=== PATIENT | male | born 1935 | race Caucasian/White ===

== ENCOUNTER → 2016-11-13 | Outpatient (CLI) | payer MEDICARE ==
[~2016-11-13] MED LIST: ACP20 PO; COEN100C15 PO; MULT-190 PO; MULT-506 PO; PRAV20TA PO; TRAM-10 PO; TRIA3AER NAE; XRL10 PO; ZOLP5TAB PO; osteo biflex; super beta prostate
[2016-11-13 10:45] LABS: BASO % 0.3 %; BASO ABS # 0.02 K/uL (0-0.2); COMPLETE YES; EOS % 2.5 %; HEMATOCRIT 41.1 % (42-52); IG% 0.2 %; LYMPH ABS # 1.47 K/uL (1.2-3.4); MEAN CELL VOLUME 95.6 fL (80-100); MEAN CORPUSCULAR HEMOGLOBIN 31.9 pg (25-34); MEAN CORPUSCULAR HGB CONC 33.3 g/dl (32-36); MEAN PLATELET VOLUME 10.1 fL (7.4-10.4); PLATELET COUNT 175 K/uL (130-400); WHITE BLOOD COUNT 6.12 K/uL (4.8-10.8)
[2016-11-13 10:46] LABS: URINE APPEARANCE CLEAR (CLEAR); URINE BILIRUBIN NEG (NEG); URINE COLOR YELLOW; URINE NITRITE NEG (NEG); URINE SPECIFIC GRAVITY 1.024 (1.000-1.030); UROBILINOGEN NEG (NEG)
[2016-11-13 10:51] LABS: MANUAL MICROSCOPIC REQUIRED? NO; REVIEW REQ? NO
[2016-11-13 10:59] LABS: ALT/SGPT 33 U/L (12-78); AST/SGOT 21 U/L (15-37); BLOOD UREA NITROGEN 21 mg/dl (7-18); BUN/CREATININE RATIO 25.9 (10-20); CALCIUM 8.9 mg/dl (8.5-10.1); CARBON DIOXIDE 29 mmol/L (21-32); CHLORIDE 109 mmol/L (98-107); CHOLESTEROL 150 mg/dl (0-200); CREATININE 0.81 mg/dl (0.60-1.40); GLUCOSE 87 mg/dl (70-99); POTASSIUM 4.3 mmol/L (3.5-5.1); SODIUM 142 mmol/L (136-145); TRIGLYCERIDES 79 mg/dl (0-150); VERY LOW DENSITY LIPOPROT CALC 16 mg/dl
[2016-11-13 11:10] LABS: ALB/GLOB RATIO 1.3 (0.9-2); ALKALINE PHOSPHATASE 76 U/L (45-117); CHOLESTEROL/HDL RATIO 3.2; HDL CHOLESTEROL 47 mg/dl; LDL CHOLESTEROL CALCULATED 87 mg/dl
[2016-11-13 12:32] LABS: ESTIMATED AVERAGE GLUCOSE 114 mg/dl; HA1C FLAG Normal (Normal)
--- NOTE | 2016-11-24 11:43 | CODING QUERY MEDICAL NECESSITY ---
CQSUPPORTING DIAGNOSIS NEEDED A supporting diagnosis is required for the test/procedure performed on this patient in order for us to be reimbursed by the patient's insurance. Please provide a supporting diagnosis for the following test/procedure listed below next to the test name along with your signature. *If there is no additional diagnosis for this patient that would support the following test/procedure please document that below next to the test/procedure. Test(s)/Procedure(s) that require a supporting diagnosis: DOS 11/13/16 GLYCATED HEMOGLOBIN TEST PROSTATE SPECIFIC TEST Provider Signature: Date: Thank you Manisha Hernandez Health Information Management Once completed, please kindly fax back to [phone] For questions please call [phone]
== END | disposition home or self-care (01) ==
LOC: C.LAB1850 09:16
PROVIDERS: ATTEND Neurological Surgery
DX: E78.00 Pure hypercholesterolemia, unspecified (principal); R73.9 Hyperglycemia, unspecified; Z12.5 Encounter for screening for malignant neoplasm of prostate

== ENCOUNTER → 2016-12-24 | Outpatient (CLI) | payer MEDICARE ==
[2016-12-24 12:11] LABS: HEMATOCRIT 40.7 % (42-52); MEAN CELL VOLUME 94.9 fL (80-100); MEAN CORPUSCULAR HEMOGLOBIN 32.2 pg (25-34); MEAN CORPUSCULAR HGB CONC 33.9 g/dl (32-36); PLATELET COUNT 168 K/uL (130-400); RED BLOOD COUNT 4.29 M/uL (4.7-6.1); WHITE BLOOD COUNT 6.54 K/uL (4.8-10.8)
[2016-12-24 12:20] LABS: PROTHROMBIN TIME (PATIENT) 10.8 SECONDS (9.0-12.0)
== END | disposition home or self-care (01) ==
LOC: C.LAB1850 10:21
PROVIDERS: ATTEND Physician Assistant Medical
DX: T14.8 Other injury of unspecified body region (principal); X58.XXXA Exposure to other specified factors, initial encounter

== ENCOUNTER → 2017-05-31 | Outpatient (CLI) | payer MEDICARE ==
--- NOTE | 2017-05-31 15:51 | DIAGNOSTIC IMAGING REPORT ---
L HIP UNILATERAL 2 VIEWS HISTORY: 81 years-old Male LT HIP PAIN acute left hip pain without known injury COMPARISON: None available TECHNIQUE: 2 views of the left hip FINDINGS: Moderate osteoarthritis of the left hip. No acute fracture or subluxation. Imaged left hemipelvis appears intact. Soft tissues are unremarkable without opaque foreign body. IMPRESSION: Moderate left hip osteoarthritis without acute fracture or subluxation. The above report was generated using voice recognition software. It may contain grammatical, syntax or spelling errors. Electronically signed by: Han Keenan M.D. 05/31/2017 3:49 PM Dictated Date/Time: 05/31/2017 3:48 PM
== END | disposition home or self-care (01) ==
LOC: C.RAD1850 15:29
PROVIDERS: ATTEND Physician Assistant Medical
DX: M25.552 Pain in left hip (principal)

== ENCOUNTER → 2017-06-04 | Outpatient (CLI) | payer MEDICARE ==
[2017-06-04 10:04] LABS: BASO % 0.3 %; BASO ABS # 0.02 K/uL (0-0.2); EOS % 2.5 %; EOS ABS # 0.15 K/uL (0-0.5); HEMOGLOBIN 13.4 g/dL (14.0-18.0); IG# 0.01 K/uL (0.00-0.02); LYMPH % 25.5 %; LYMPH ABS # 1.51 K/uL (1.2-3.4); MEAN CELL VOLUME 95.6 fL (80-100); MEAN CORPUSCULAR HEMOGLOBIN 31.2 pg (25-34); MEAN CORPUSCULAR HGB CONC 32.7 g/dl (32-36); MEAN PLATELET VOLUME 9.6 fL (7.4-10.4); MONO % 6.7 %; NEUT % 64.8 %; NEUT ABS # 3.84 K/uL (1.4-6.5); PLATELET COUNT 168 K/uL (130-400); RED CELL DISTRIBUTION WIDTH CV 13.4 % (11.5-14.5); RED CELL DISTRIBUTION WIDTH SD 46.4 fL (36.4-46.3); WHITE BLOOD COUNT 5.93 K/uL (4.8-10.8)
[2017-06-04 10:32] LABS: ALBUMIN 3.6 gm/dl (3.4-5.0); ALT/SGPT 26 U/L (12-78); AST/SGOT 19 U/L (15-37); BLOOD UREA NITROGEN 20 mg/dl (7-18); CARBON DIOXIDE 31 mmol/L (21-32); CREATININE 0.82 mg/dl (0.60-1.40); GLUCOSE 70 mg/dl (70-99); SODIUM 143 mmol/L (136-145)
[2017-06-04 10:35] LABS: ALKALINE PHOSPHATASE 86 U/L (45-117); TOTAL PROTEIN 6.8 gm/dl (6.4-8.2)
[2017-06-08 21:35] LABS: PARVOVIRUS IgM INDEX 0.2 (<0.9)
== END | disposition home or self-care (01) ==
LOC: C.LAB1850 09:09
PROVIDERS: ATTEND Physician Assistant Medical
DX: M25.50 Pain in unspecified joint (principal)

== ENCOUNTER → 2017-11-09 | Outpatient (CLI) | payer MEDICARE ==
[2017-11-09 09:39] LABS: BASO % 0.4 %; BASO ABS # 0.02 K/uL (0-0.2); EOS ABS # 0.22 K/uL (0-0.5); HEMATOCRIT 42.1 % (42-52); LYMPH % 28.8 %; LYMPH ABS # 1.58 K/uL (1.2-3.4); MEAN CELL VOLUME 95.7 fL (80-100); MEAN CORPUSCULAR HEMOGLOBIN 31.8 pg (25-34); MEAN CORPUSCULAR HGB CONC 33.3 g/dl (32-36); MONO % 9.1 %; NEUT % 57.7 %; NEUT ABS # 3.16 K/uL (1.4-6.5); PLATELET COUNT 189 K/uL (130-400); RED CELL DISTRIBUTION WIDTH CV 13.5 % (11.5-14.5); RED CELL DISTRIBUTION WIDTH SD 46.7 fL (36.4-46.3); WHITE BLOOD COUNT 5.48 K/uL (4.8-10.8)
[2017-11-09 10:20] LABS: ALBUMIN 3.9 gm/dl (3.4-5.0); ALKALINE PHOSPHATASE 73 U/L (45-117); ALT/SGPT 29 U/L (12-78); AST/SGOT 22 U/L (15-37); BLOOD UREA NITROGEN 20 mg/dl (7-18); CALCIUM 9.1 mg/dl (8.5-10.1); CARBON DIOXIDE 31 mmol/L (21-32); CHOLESTEROL 178 mg/dl (0-200); CREATININE 0.78 mg/dl (0.60-1.40); GLUCOSE 81 mg/dl (70-99); LDL CHOLESTEROL CALCULATED 114 mg/dl; POTASSIUM 4.1 mmol/L (3.5-5.1); SODIUM 142 mmol/L (136-145)
== END | disposition home or self-care (01) ==
LOC: C.LAB1850 06:56
PROVIDERS: ATTEND Internal Medicine Pulmonary Disease
DX: E78.00 Pure hypercholesterolemia, unspecified (principal); R35.1 Nocturia

== ENCOUNTER 2022-05-01 20:38 | Inpatient (IN) ==
--- NOTE | 2022-05-01 21:20 | Emergency Department Note ---
Impression & Plan Acute hip pain, Ambulatory dysfunction ED Provider Note NAME: TIFFANY SLAUGHTER AGE: 86 SEX: M : 1935 ARRIVES VIA: Ambulance INFORMANT: Patient ED PROVIDER(S): Julio Butts DO CHIEF COMPLAINT: right hip pain HPI: Patient is an 86-year-old male who was recently admitted and had surgery on his right hip. He was discharged to rehab. He left the rehab AMA today to go home as he did not like the food and he did not like lack of rehab treatment that he was getting. He denies all other complaints including headache, change in vision, chest pain, shortness of breath, nausea, vomiting or diarrhea. No dysuria, urgency or frequency. No other exacerbating or remitting factors. He came back in as he cannot take care of himself at home and needs to be placed again. PAST MEDICAL HISTORY:See Below PAST SURGICAL HISTORY:See Below FAMILY HISTORY:See Below SOCIAL HISTORY:See Below HOME MEDICATIONS:See Below ALLERGIES:See Below VITALS:See Below PHYSICAL EXAMINATION: GENERAL: Sitting up in bed, alert, well appearing, well nourished, no distress, non-toxic EYE EXAM: normal conjunctiva. OROPHARYNX: no exudate, no erythema, lips, buccal mucosa, and tongue normal and mucous membranes are moist NECK: supple, no nuchal rigidity, no adenopathy, non-tender LUNGS: Clear to auscultation. Normal chest wall mechanics HEART: no murmurs, S1 normal and S2 normal ABDOMEN: abdomen soft, non-tender, normo-active bowel sounds, no masses, no rebound or guarding. UPPER EXTREMITIES: upper extremities are grossly normal. LOWER EXTREMITIES: No pitting edema. NEURO EXAM: Normal sensorium, cranial nerves II-XII grossly intact, normal speech, no gross weakness of arms, no gross weakness of legs. MEDICAL DECISION MAKING: Patient is an 86-year-old male who presents the ER who just left rehab today AMA although the doctors recommended him staying. Once getting home he was unable to care for himself consequently came back in. He denies all other complaints. IV was established blood work was obtained. Labs show no significant leukocytosis. Mild anemia 11. BMP was unremarkable. Case was discussed with Dr. Alvin Nunez for further evaluation and admission. External records were reviewed. Discussed with care management and patient will be admitted for further work-up. Triage Nursing notes reviewed. Limited review of prior medical records performed Vital Signs: reviewed and remarkable for no significant abnormalities Differential diagnosis: Differential diagnoses includes but is not limited to gastritis, peptic ulcer disease, GERD, gallbladder disease, pancreatitis, small bowel obstruction, ap pendicitis, diverticulitis, hernia, urinary tract infection, torsion, perforation, trauma, infectious. ER treatment provided: See below Diagnostics interpreted by me include EKG and cardiac monitoring as listed below: -Cardiac Monitoring: An order was placed for continuous cardiac monitoring. The monitor shows a rate of 80 with sinus rhythm. -ECG: none -Laboratory studies:Interpreted by me as stated above in MDM and shown below. Imaging studies: Xrays: As interpreted by me:none CTs show: none Consultation(s): Discussed with Alvin Nunez for further evaluation work-up and admission Procedures:none Critical Care: None Past Med/Surg History Medical History Allergic rhinitis Anxiety Arthritis Benign prostatic hyperplasia with urinary obstruction Cataract Chronic reflux esophagitis Degenerative joint disease involving multiple joints Hypercholesterolemia Hypertension Insomnia Obstructive sleep apnea Premature ventricular contractions Surgical History History of cataract surgery History of colonoscopy History of hip replacement, total History of shoulder surgery History of total knee arthroplasty Family History Son Primary biliary cirrhosis Social History Smoking Status: Never smoker Hx Alcohol Use: Yes Alcohol type: wine Hx Substance Use: No Preferred Language: Latvian Communication Ability: Effective Director Of Sales Marketing Required: No Beliefs That Will Affect Care: None marital status: / Current Living Situation: Alone current occupational status: retired Other Information That Helps Us Care for You: No Feels Safe at Home: Yes Safety Concerns: Feels Safe At This Time Assistive Devices: Glasses Assistive Devices Comment: prior to fall was independent in all activites Allergies Allergies Allergy/AdvReac Type Severity Reaction Status Date / Time No Known Allergies Allergy Verified 05/01/22 21:37 Home Meds Home Medications Medication Instructions Recorded Confirmed [id number]-[id number]-oha palm-min 17 1 tab PO DAILY 10/28/18 05/01/22 [Prostate Therapy] omega 3,6,9 combination no.7 1 cap PO DAILY 10/28/18 05/01/22 melatonin 10 mg tablet 5 mg PO HS PRN Sleep 11/07/18 05/01/22 lovcwkrv-nwb-jsrsp acid 300 1 tab PO DAILY 09/05/20 05/01/22 mcg-lycopene 600 mcg-lutein 300 mcg tablet (Centrum Silver Men) super beta prostate 1 tab PO DAILY 09/05/20 05/01/22 coenzyme Q10 50 mg capsule 50 mg PO DAILY 10/15/21 05/01/22 acetaminophen 325 mg tablet 650 mg PO Q6H PRN PAIN/FEVER 05/01/22 05/01/22 (Tylenol) acetaminophen 500 mg tablet 1,000 mg PO Q8H 05/01/22 05/01/22 (Tylenol Extra Strength) alprazolam 0.25 mg tablet 0.25 mg PO BID PRN Anxiety 05/01/22 05/01/22 apixaban 2.5 mg tablet (Eliquis) 2.5 mg PO BID 05/01/22 05/01/22 cholecalciferol (vitamin D3) 50 50 mcg PO DAILY 05/01/22 05/01/22 mcg (2,000 unit) capsule (Vitamin D3) esomeprazole magnesium 40 mg 40 mg PO DAILY 05/01/22 05/01/22 capsule,delayed release lidocaine 5 % topical patch 1 patch topical DAILY 05/01/22 05/01/22 losartan 25 mg tablet 25 mg PO DAILY 05/01/22 05/01/22 pravastatin 20 mg tablet 20 mg PO HS 05/01/22 05/01/22 silodosin 8 mg capsule 8 mg PO DAILY 05/01/22 05/01/22 triamcinolone acetonide 55 mcg 1 spray intranasal DAILY 05/01/22 05/01/22 nasal spray aerosol (Nasacort Allergy) vitamin A-vitamin C-vit E-min 1 tab PO DAILY 05/01/22 05/01/22 tablet zolpidem 5 mg tablet (Ambien) 5 mg PO HS PRN Sleep 05/01/22 05/01/22 Previous Rx's Medication Instructions Recorded meclizine 25 mg tablet 25 mg PO TID PRN dizziness #30 tabs 05/24/20 vardenafil 10 mg tablet 10 mg PO DAILY PRN sexual activity 12/15/21 #30 tabs Results & Data (ED) Vital Signs Vital Signs - 24 hr 05/01/22 21:04 Temperature 36.6 C Temperature Source Oral Pulse Rate 77 Respiratory Rate 18 Respiratory Effort / Characteristics Non-Labored Spontaneous Respiratory Depth Normal Blood Pressure 122/71 Blood Pressure Mean 88 Pulse Oximetry 98 Oxygen Delivery Method Room Air Sepsis Recent Fever Within 48 Hours No Sepsis New/Unexplained Change in Mental Status No Sepsis Action Taken by Nursing No Action Required Laboratory Data 05/01/22 21:24 05/01/22 22:42 Lab Results 05/01/22 05/01/22 05/01/22 Range/Units 21:24 21:24 21:24 WBC 8.52 (4.8-10.8) K/ul RBC 3.56 L (4.70-6.10) M/uL Hgb 11.4 L (14.0-18.0) g/dl Hct 33.3 L (42.0-52.0) % MCV 93.5 (80.0-100.0) fL MCH 32.0 (25.0-34.0) pg MCHC 34.2 (32.0-36.0) g/dL RDW Std Deviation 52.8 H (36.4-46.3) fL RDW Coeff of Sheree 15.4 H (11.5-14.5) % Plt Count 410 H (130-400) K/uL MPV 8.8 L (9.4-12.4) fL Immature Gran % (Auto) 0.6 % Neut % (Auto) 77.9 % Lymph % (Auto) 10.3 % [place] % (Auto) 10.1 % Eos % (Auto) 0.7 % Baso % (Auto) 0.4 % Neut # (Auto) 6.64 H (1.40-6.50) K/uL Lymph # (Auto) 0.88 L (1.2-3.4) K/uL [place] # (Auto) 0.86 H (0.11-0.59) K/uL Eos # (Auto) 0.06 (0-0.50) K/uL Baso # (Auto) 0.03 (0-0.2) K/uL Immature Gran # (Auto) 0.05 (0.01-0.20) K/uL Sodium 139 (136-145) mmol/L Potassium TNP Chloride 104 (98-107) mmol/L Carbon Dioxide 26 (21-32) mmol/L Anion Gap 9 (3-11) BUN 28 H (6-23) mg/dl Creatinine 0.84 (0.6-1.4) mg/dl Est Cr Clr Drug Dosing 57.9 ml/min Est GFR ( Amer) 91.2 ml/min Est GFR (Non-Af Amer) 78.7 ml/min BUN/Creatinine Ratio 33.3 H (10-20) Glucose 115 H (70-99(Fasting)) mg/dl Calcium 9.7 (8.5-10.1) mg/dl SARS-CoV-2, RNA, NAAT NEGATIVE (NEGATIVE) Discharge Plan Visit Data Chief Complaint: Pain (Generalized) Stated Complaint: PAIN/EVALUATION ED Provider: Julio Butts Discharge Problem: Acute hip pain, Ambulatory dysfunction Patient Disposition: Admitted As Inpatient Discharge Instructions Interventions: ED Discharge Assessment Last Done: 05/01/22 23:32
--- NOTE | 2022-05-01 21:32 | History & Physical Report ---
Date of Service May 01, 2022 Assessment & Plan (1) Femoral distal fracture: Plan: 86-year-old gentleman who was recently discharged from [facility] on 04/17 following a fall on ice that resulted in a right proximal humerus fracture and a right periprosthetic distal femoral diaphysis fracture that required right femur ORIF on 04/15 who presented to [facility] after leaving AMA from rehab. He requires hospitalization for PT, OT, pain management, and assistance with placement. RIGHT Distal Femoral Fracture s/p ORIF - s/p ORIF at [facility] on 04[place] - tolerated PT, OT well, was at rehab when he left AMA and now represented for hip pain - Pain control: Tylenol > Oxycodone. Avoid NSAIDs per [facility]. - PT, OT will be ordered --> Per [facility]: R hip and knee ROM as tolerated, no restrictions; knee immobilizer for comfort only - Fall precautions, NWB on RLE - Appreciate CM assistance on placement - will likely require rehab again - DVT PPX: Eliquis 2.5mg b.i.d. - WOCN to be consulted to aid with dressing change recommendations (2) Hypercholesterolemia: Plan: HLD - Continue pravastatin (3) Anxiety: Plan: Anxiety Alprazolam 0.125mg b.i.d. PRN for anxiety (home dose) Zolpidem 5 mg as needed for sleep (home medication) (4) Benign prostatic hyperplasia with urinary obstruction: Plan: BPH Continue silodosin 8 mg daily Plan Code: Full Prophylaxis: Eliquis 2.5 mg twice daily Dispo: [facility]Sur Diet: regular History of Present Illness Primary Care Provider: Esteban Jovel MD This is an 86-year-old male with a history of depression, anxiety, BPH with urinary obstruction, GERD, hypertension, hypercholesteremia, JANELL, cervical radiculopathy who presented to [facility] for evaluation of hip pain. Patient was recently discharged from [facility] after falling on ice, landing on his right knee and arm. X-rays demonstrated periprosthetic right proximal humerus fracture and periprosthetic distal femoral diaphysis fracture that necessitated repair of the femur fracture. He was on Eliquis 2.5 mg twice daily for DVT prophylaxis. He was ultimately discharged to [facility] in [place]. He did not like the care he was receiving there so he left AMA. He he says that he is very motivated to participate in rehab. He feels that the previous rehab facility was not meeting his needs, and he would be better served somewhere locally or at home with home PT. He is understanding that physical and occupational retraining are incredibly important to preventing long-term negative outcomes. In the ED, patient was found to be hemodynamically stable with normal blood pressure, heart rate, oxygen saturation. Admission labs revealing stable mild chronic anemia with hemoglobin 13.7. INR 1.0. BUN 21/creatinine 0.9. COVID- negative. Allergies Allergy/AdvReac Type Severity Reaction Status Date / Time No Known Allergies Allergy Verified 05/01/22 21:37 Home Medications Medication Instructions Recorded Confirmed Type dzuseg-nwglvro-ctd palm-min 17 1 tab PO DAILY 10/28/18 05/01/22 History [Prostate Therapy] omega 3,6,9 combination no.7 1 cap PO DAILY 10/28/18 05/01/22 History melatonin 10 mg tablet 5 mg PO HS PRN Sleep 11/07/18 05/01/22 History meclizine 25 mg tablet 25 mg PO TID PRN dizziness #30 tabs 05/24/20 05/01/22 Rx xnxagjgx-fhe-fvryv acid 300 1 tab PO DAILY 09/05/20 05/01/22 History mcg-lycopene 600 mcg-lutein 300 mcg tablet (Centrum Silver Men) super beta prostate 1 tab PO DAILY 09/05/20 05/01/22 History coenzyme Q10 50 mg capsule 50 mg PO DAILY 10/15/21 05/01/22 History vardenafil 10 mg tablet 10 mg PO DAILY PRN sexual activity 12/15/21 05/01/22 Rx #30 tabs acetaminophen 325 mg tablet 650 mg PO Q6H PRN PAIN/FEVER 05/01/22 05/01/22 History (Tylenol) acetaminophen 500 mg tablet 1,000 mg PO Q8H 05/01/22 05/01/22 History (Tylenol Extra Strength) alprazolam 0.25 mg tablet 0.25 mg PO BID PRN Anxiety 05/01/22 05/01/22 History apixaban 2.5 mg tablet (Eliquis) 2.5 mg PO BID 05/01/22 05/01/22 History cholecalciferol (vitamin D3) 50 50 mcg PO DAILY 05/01/22 05/01/22 History mcg (2,000 unit) capsule (Vitamin D3) esomeprazole magnesium 40 mg 40 mg PO DAILY 05/01/22 05/01/22 History capsule,delayed release lidocaine 5 % topical patch 1 patch topical DAILY 05/01/22 05/01/22 History losartan 25 mg tablet 25 mg PO DAILY 05/01/22 05/01/22 History pravastatin 20 mg tablet 20 mg PO HS 05/01/22 05/01/22 History silodosin 8 mg capsule 8 mg PO DAILY 05/01/22 05/01/22 History triamcinolone acetonide 55 mcg 1 spray intranasal DAILY 05/01/22 05/01/22 History nasal spray aerosol (Nasacort Allergy) vitamin A-vitamin C-vit E-min 1 tab PO DAILY 05/01/22 05/01/22 History tablet zolpidem 5 mg tablet (Ambien) 5 mg PO HS PRN Sleep 05/01/22 05/01/22 History Past Med/Surg History Medical History Allergic rhinitis Anxiety Arthritis Benign prostatic hyperplasia with urinary obstruction Cataract Chronic reflux esophagitis Degenerative joint disease involving multiple joints Hypercholesterolemia Hypertension Insomnia Obstructive sleep apnea Premature ventricular contractions Surgical History History of cataract surgery History of colonoscopy History of hip replacement, total History of shoulder surgery History of total knee arthroplasty Family History Son Primary biliary cirrhosis Social History Smoking Status: Never smoker Hx Alcohol Use: Yes Alcohol type: wine Hx Substance Use: No Preferred Language: [place] Communication Ability: Effective Repairer Resistance Welding Machines Required: No Beliefs That Will Affect Care: None marital status: / Current Living Situation: Alone current occupational status: retired Other Information That Helps Us Care for You: No Feels Safe at Home: Yes Safety Concerns: Feels Safe At This Time Assistive Devices: Walker and Wheelchair Assistive Devices Comment: prior to fall was independent in all activites Review of Systems Review of Systems: as per HPI Physical Exam Physical Exam: General: 86-year old male who is alert, oriented, and appears in no acute distress. HEENT: NCAT. - Eyes - Sclera are white, anicteric, and without injection. - Mouth - MMM - Neck - supple, no appreciable JVD Cardiac: Normal rate and regular rhythm; S1 and S2 present with no murmurs, rubs, or gallops. Pulmonary: Good respiratory effort with symmetric expansion of the chest. No use of accessory muscles. Lungs were clear to auscultation bilaterally with no crackles or wheezes. Abdominal: Normoactive bowel sounds. Abdomen was soft, nondistended, and non- tender to palpation. Extremities: Upper and lower extremities are warm and well perfused. Bandage along R lateral thigh c/d/i. Peripheral strength at ankle is 5/5. No peripheral edema in the lower extremities bilaterally Psych: Well-developed, well-nourished, appropriately dressed for occasion. Behavior is cooperative and appropriate. Affect is WNL. Insight is appropriate. Results & Data Results & Data ([facility]) Vital Signs (Past 12 Hours) Vital Signs Temp Pulse Resp BP Pulse Ox O2 Del Method 05/01/22 21:04 36.6 C 77 18 122/71 98 Room Air Supervising Physician Co-Signing Physician Notes Attending addendum: I have physically seen this patient, have supervised the medical residents activities, and agree with the H&P unless as otherwise noted. Assessment and Plan: Status post right periprosthetic distal femoral fracture ORIF- Patient was unhappy with physical therapy and food at previous rehab facility Admit for PT/OT assessment and management continue rehab facility Activity as tolerated per [facility] orthopedic surgery recommendation DVT prophylaxis with Eliquis 2.5 mg p.o. twice daily Wound care nurse consult for dressing recommendation changes Anxiety- Continue alprazolam and zolpidem as needed Hyperlipidemia- Continue pravastatin BPH- Continuous silodosin 8 mg harpreet remaining orders and notations as noted ly Resident Activity Tracking Resident Involvement: Resident Care Provided Care Provided: Adult [facility]
[2022-05-01] MEDS ORDERED: ONDANSETRON INJ 2 MG/ML 2 ML VIAL IV PRN (21:33)
[2022-05-01] MEDS ORDERED: POLYETHYLENE (MIRALAX) 17 GM PACK PO PRN (21:33)
[2022-05-01] MEDS ORDERED: ACETAMINOPHEN 325 MG TAB PO PRN (21:33)
[2022-05-01] MEDS ORDERED: ALUMINUM/MAGNESIUM SUSP 30 ML UDC PO PRN (21:33)
[2022-05-01 21:54] LABS: Basophils # (auto) 0.03 K/uL (0-0.2); Basophils % (auto) 0.4 %; Eosinophils # (auto) 0.06 K/uL (0-0.50); Eosinophils % (auto) 0.7 %; Hematocrit (blood only) 33.3 % (42.0-52.0); Hemoglobin 11.4 g/dl (14.0-18.0); Immature Granulocytes # (auto) 0.05 K/uL (0.01-0.20); Immature Granulocytes % (auto) 0.6 %; Lymphocytes # (auto) 0.88 K/uL (1.2-3.4); Lymphocytes % (auto) 10.3 %; Mean Corpuscular Hgb Conc 34.2 g/dL (32.0-36.0); Mean Corpuscular Volume 93.5 fL (80.0-100.0); Mean Platelet Volume 8.8 fL (9.4-12.4); Monocytes # (auto) 0.86 K/uL (0.11-0.59); Monocytes % (auto) 10.1 %; Neutrophils # (auto) 6.64 K/uL (1.40-6.50); Neutrophils % (auto) 77.9 %; Platelet Count 410 K/uL (130-400); RDW Coefficient of Variation 15.4 % (11.5-14.5); RDW Standard Deviation 52.8 fL (36.4-46.3); Red Blood Count 3.56 M/uL (4.70-6.10); White Blood Count 8.52 K/ul (4.8-10.8)
[2022-05-01 22:06] LABS: Anion Gap 9 (3-11); BUN Creatinine Ratio 33.3 (10-20); Blood Urea Nitrogen 28 mg/dl (6-23); Calcium 9.7 mg/dl (8.5-10.1); Carbon Dioxide 26 mmol/L (21-32); Chloride 104 mmol/L (98-107); Creatinine Clr Calc Pharmacy 57.9 ml/min; Est GFR (African American) 91.2 ml/min; Est GFR (Non-African American) 78.7 ml/min; Glucose 115 mg/dl (70-99(Fasting)); Sodium 139 mmol/L (136-145)
[2022-05-01] MEDS ORDERED: MECLIZINE HCL 25 MG TAB PO PRN (23:11)
[2022-05-01] MEDS ORDERED: ZOLPIDEM TARTRATE 5 MG TAB PO PRN (23:11)
[2022-05-01] MEDS ORDERED: ALPRAZolam 0.25 MG TABLET PO PRN (23:11)
[2022-05-01] MEDS ORDERED: oxyCODONE HCL IR 5 MG TAB (IMMEDIATE RELEASE) PO PRN (23:11)
[2022-05-02] MEDS: ACETAMINOPHEN 500 MG TAB PO SCH ×4 (00:07→21:14)
[2022-05-02] MEDS: LIDOCAINE 5% 1 PATCH TD SCH (08:28)
[2022-05-02] MEDS: CHOLECALCIFEROL 1,000 UNITS 25 MCG TAB PO SCH (08:28)
[2022-05-02] MEDS: APIXABAN 2.5 MG TAB PO SCH ×2 (08:28→20:25)
[2022-05-02] MEDS: TRIAMCINOLONE ACET NASAL SPRAY 10.8ML BTL NAE SCH (08:29)
[2022-05-02] MEDS: PANTOprazole 40 MG TAB PO SCH (08:29)
[2022-05-02 08:40] LABS: Basophils # (auto) 0.03 K/uL (0-0.2); Basophils % (auto) 0.5 %; Eosinophils # (auto) 0.15 K/uL (0-0.50); Eosinophils % (auto) 2.6 %; Hemoglobin 10.9 g/dl (14.0-18.0); Immature Granulocytes # (auto) 0.02 K/uL (0.01-0.20); Immature Granulocytes % (auto) 0.3 %; Lymphocytes # (auto) 1.08 K/uL (1.2-3.4); Lymphocytes % (auto) 18.4 %; Mean Corpuscular Hemoglobin 31.9 pg (25.0-34.0); Mean Corpuscular Volume 96.5 fL (80.0-100.0); Mean Platelet Volume 8.8 fL (9.4-12.4); Monocytes # (auto) 0.73 K/uL (0.11-0.59); Monocytes % (auto) 12.5 %; Neutrophils # (auto) 3.85 K/uL (1.40-6.50); Neutrophils % (auto) 65.7 %; Platelet Count 370 K/uL (130-400); RDW Coefficient of Variation 15.5 % (11.5-14.5); RDW Standard Deviation 54.2 fL (36.4-46.3); Red Blood Count 3.42 M/uL (4.70-6.10); White Blood Count 5.86 K/ul (4.8-10.8)
[2022-05-02 09:04] LABS: Albumin Globulin Ratio 1.5 (0.9-2); Albumin Level 3.5 gm/dl (3.4-5.0); BUN Creatinine Ratio 30.1 (10-20); Bilirubin,Total 0.9 mg/dl (0.2-1.0); Calcium 9.7 mg/dl (8.5-10.1); Creatinine Clr Calc Pharmacy 58.6 ml/min; Est GFR (African American) 91.7 ml/min; Est GFR (Non-African American) 79.1 ml/min; Globulin 2.4 gm/dl (2.5-4.0); Total Protein 5.9 gm/dl (6.0-8.3)
--- NOTE | 2022-05-02 11:48 | Hospitalist Progress Note ---
Date of Service May 02, 2022 Assessment & Plan (1) Acute hip pain: Plan: Recent Distal R Femur Fx s/p ORIF on 04/15 @ [facility] - Was at Rehab facility in [place], didn't feel that they were meeting needs and signed out AMA, attempted to go home but dgtr called 911 when he was unable to transfer into bed - PT/OT eval to determine appropriate dispo - Case management consult to assist in dc planning - Pain control with Tylenol & Oxycodone, avoid NSAIDs - Dressing changes PRN - Fall precautions d/t NWB status to RLE - DVT ppx with Eliquis 2.5mg BID (2) Anxiety: Plan: - Continue Alprazolam & Ambien (at home doses) (3) Hypercholesterolemia: Plan: - Continue Pravastatin (4) BPH w/o urinary obs/LUTS: Plan: - Continue Silodosin 8mg daily Plan Plan as outlined above. Will d/w Dr. Byrd. Admission and Anticipated Discharge Date Admission Date: May 01, 2022 Subjective Patient seen on daily rounds this morning. He is resting comfortably in bed, reports no complaints. Right hip/leg pain controlled. Hoping that he can be discharged home with home health versus going to rehab; however, he is NWB to his right leg. He denies chest pain, dyspnea. Has been voiding and moving bowels regularly. Physical Exam Physical Exam: GENERAL: 86 yo wd/wn elderly WM. Pleasant, cooperative. NAD. LUNGS: Clear to auscultation bilaterally. No W/R/R. CARDIOVASCULAR: Regular rate and rhythm. EXTREMITIES: No edema. Non-tender. Peripheral pulses +2/4. Right leg incision dressing intact/dry. No erythema. Neg latisha's sign. Results & Data Results & Data ([facility]) Vital Signs (Past 12 Hours) Vital Signs Temp Pulse Resp BP Pulse Ox O2 Del Method 05/02/22 11:28 Room Air 05/02/22 07:50 36.6 C 74 16 116/68 97 Room Air 05/01/22 23:50 Room Air Laboratory Results 05/02/22 08:00 05/02/22 08:00 PG Care Time/CCT Total # of Minutes Spent Total Time Spent with Patient: Total time spent is greater than 50% in coordination of care (as documented) at patient's floor/unit and/or counseling patient: Coding Level of Care Code 07078 SUB INP/OBS CARE 2/35MIN Diagnoses Acute hip pain M25.559 Anxiety F41.9 Hypercholesterolemia E78.00 BPH w/o urinary obs/LUTS N40.0
--- NOTE | 2022-05-02 20:08 | Billing Data ---
Date of Service May 02, 2022 Coding Level of Care Code 25641 INT INP/OBS CARE
[2022-05-02] MEDS: PRAVASTATIN SOD 20 MG TAB PO SCH (20:26)
[2022-05-02] MEDS ORDERED: LIDOCAINE 5% 1 PATCH TD SCH (21:00)
[2022-05-02] MEDS: MELATONIN 3 MG TAB PO PRN (21:16)
[2022-05-03] MEDS: ACETAMINOPHEN 500 MG TAB PO SCH ×3 (05:48→21:12)
[2022-05-03] MEDS: APIXABAN 2.5 MG TAB PO SCH ×2 (08:51→21:12)
[2022-05-03] MEDS: CHOLECALCIFEROL 1,000 UNITS 25 MCG TAB PO SCH (08:51)
[2022-05-03] MEDS: LIDOCAINE 5% 1 PATCH TD SCH (08:52)
[2022-05-03] MEDS: PANTOprazole 40 MG TAB PO SCH (08:52)
[2022-05-03] MEDS: TRIAMCINOLONE ACET NASAL SPRAY 10.8ML BTL NAE SCH (08:53)
--- NOTE | 2022-05-03 11:00 | Hospitalist Progress Note ---
Date of Service May 03, 2022 Assessment & Plan (1) Acute hip pain: Plan: Recent Distal R Femur Fx s/p ORIF on 04/15 @ [facility] [place] - Was at Rehab facility in [place], didn't feel that they were meeting needs and signed out AMA, attempted to go home but dgtr called 911 when he was unable to transfer into bed - PT/OT eval to determine appropriate dispo - Case management consult to assist in dc planning - Pain control with Tylenol & Oxycodone, avoid NSAIDs - Dressing changes PRN - Fall precautions d/t NWB status to RLE - DVT ppx with Eliquis 2.5mg BID (2) Periprosthetic fracture around internal prosthetic right shoulder joint: Plan: - Also occurred as a result of his fall back in March - Non-op management with R arm sling and NWB - Sling ordered and patient was counseled re: importance of wearing this sling (3) Anxiety: Plan: - Continue Alprazolam & Ambien (at home doses) (4) Hypercholesterolemia: Plan: - Continue Pravastatin (5) BPH w/o urinary obs/LUTS: Plan: - Continue Silodosin 8mg daily Plan Plan as outlined above. Continue PT/OT. Change dressing to right leg incision PRN. Above d/w Dr. Byrd. Admission and Anticipated Discharge Date Admission Date: May 02, 2022 Subjective Patient seen on daily rounds this morning. He has no complaints. Seems more receptive to the idea of going back to rehab but just doesn't want to go back to [place]. Denies uncontrolled hip/leg pain or shoulder pain. Is currently not wearing arm sling. Denies cp or dyspnea. Physical Exam Physical Exam: GENERAL: 86 yo wd/wn elderly WM. Pleasant, cooperative. NAD. LUNGS: Clear to auscultation bilaterally. No W/R/R. CARDIOVASCULAR: Regular rate and rhythm. EXTREMITIES: No edema. Non-tender. Peripheral pulses +2/4. Right leg incision dressing intact/dry. No erythema. Neg latisha's sign. Results & Data Results & Data ([facility]) Vital Signs (Past 12 Hours) Vital Signs Temp Pulse Resp BP Pulse Ox O2 Del Method 05/03/22 07:22 36.2 C L 74 16 120/75 97 Room Air 05/02/22 22:53 36.9 C 86 18 104/69 95 Room Air PG Care Time/CCT Total # of Minutes Spent Total Time Spent with Patient: Total time spent is greater than 50% in coordination of care (as documented) at patient's floor/unit and/or counseling patient: Coding Level of Care Code 15012 SUB INP/OBS CARE 2/35MIN Diagnoses Acute hip pain M25.559 Periprosthetic fracture around internal prosthetic right shoulder joint M97.31XA Anxiety F41.9 Hypercholesterolemia E78.00 BPH w/o urinary obs/LUTS N40.0
[2022-05-03] MEDS: MELATONIN 3 MG TAB PO PRN (21:12)
[2022-05-03] MEDS: PRAVASTATIN SOD 20 MG TAB PO SCH (21:12)
[2022-05-04] MEDS: ACETAMINOPHEN 500 MG TAB PO SCH ×3 (05:30→20:52)
[2022-05-04] MEDS: APIXABAN 2.5 MG TAB PO SCH ×2 (08:37→20:51)
[2022-05-04] MEDS: PANTOprazole 40 MG TAB PO SCH (08:38)
[2022-05-04] MEDS: CHOLECALCIFEROL 1,000 UNITS 25 MCG TAB PO SCH (08:39)
[2022-05-04] MEDS: LIDOCAINE 5% 1 PATCH TD SCH (08:41)
[2022-05-04] MEDS: TRIAMCINOLONE ACET NASAL SPRAY 10.8ML BTL NAE SCH (09:34)
--- NOTE | 2022-05-04 13:16 | Hospitalist Progress Note ---
Date of Service May 04, 2022 Assessment & Plan (1) Acute hip pain: Plan: Recent [place] [facility] [place], didn't feel that they were meeting needs and signed out AMA, attempted to go home but dgtr called 911 when he was unable to transfer into bed - PT/OT eval to determine appropriate dispo - Case management consult to assist in dc planning - Pain control with Tylenol & Oxycodone, avoid NSAIDs - Dressing changes PRN - Fall precautions d/t NWB status to RLE - DVT ppx with Eliquis 2.5mg BID - Call out to Dr. 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 Continue PT/OT. Change dressing to right leg incision PRN. Above d/w Dr. Byrd. Admission and Anticipated Discharge Date Admission Date: May 02, 2022 Subjective Patient seen on daily rounds this morning. He has no complaints. This morning is adamant that he does not want to go back to rehab and wants to go home. Denies uncontrolled hip/leg pain or shoulder pain. Is currently not wearing arm sling- keeps saying it's causing discomfort on the left side of his neck. Denies cp or dyspnea. Physical Exam Physical Exam: GENERAL: 86 yo wd/wn elderly WM. Pleasant, cooperative. NAD. LUNGS: Clear to auscultation bilaterally. No W/R/R. CARDIOVASCULAR: Regular rate and rhythm. EXTREMITIES: No edema. Non-tender. Peripheral pulses +2/4. Right leg incision dressing intact/dry. No erythema. Neg latisha's sign. 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
[2022-05-04] MEDS: MELATONIN 3 MG TAB PO PRN (20:50)
[2022-05-04] MEDS: PRAVASTATIN SOD 20 MG TAB PO SCH (20:52)
[2022-05-05] MEDS: ACETAMINOPHEN 500 MG TAB PO SCH ×3 (06:09→20:54)
[2022-05-05] MEDS: CHOLECALCIFEROL 1,000 UNITS 25 MCG TAB PO SCH (08:38)
[2022-05-05] MEDS: PANTOprazole 40 MG TAB PO SCH (08:38)
[2022-05-05] MEDS: APIXABAN 2.5 MG TAB PO SCH ×2 (08:39→20:43)
[2022-05-05] MEDS: LIDOCAINE 5% 1 PATCH TD SCH (08:39)
[2022-05-05] MEDS: TRIAMCINOLONE ACET NASAL SPRAY 10.8ML BTL NAE SCH (08:42)
--- NOTE | 2022-05-05 13:03 | Hospitalist Progress Note ---
Date of Service May 05, 2022 Assessment & Plan (1) Acute hip pain: Plan: Recent Distal R Femur Fx s/p ORIF on 04/15 @ [facility] [place] - Was at Rehab facility in [place], didn't feel that they were meeting needs and signed out AMA, attempted to go home but dgtr called 911 when he was unable to transfer into bed - PT/OT eval to determine appropriate dispo - Case management consult to assist in dc planning - Pain control with Tylenol & Oxycodone, avoid NSAIDs - Dressing changes PRN - Fall precautions d/t NWB status to RLE - DVT ppx with Eliquis 2.5mg BID - Spoke with Dr. Oquendo's office (pt's [place] surgeon) who refused to change his WB status until pt is seen and has updated xrays on 05/07 - Reached out to [facility] on 05/05 to see if they are willing to see patient while he is here in the hospital, no word back on that at this time (2) Periprosthetic fracture around internal prosthetic right shoulder joint: Plan: - Also occurred as a result of his fall back in March - Non-op management with R arm sling and NWB - Sling ordered and patient has been counseled repeatedly re: importance of wearing this sling (3) Anxiety: Plan: - Continue Alprazolam & Ambien (at home doses) (4) Hypercholesterolemia: Plan: - Continue Pravastatin (5) BPH w/o urinary obs/LUTS: Plan: - Continue Silodosin 8mg daily Plan Plan as outlined above. Continue PT/OT. Change dressing to right leg incision PRN. Case management following to for dc arrangements. If goes home, will almost definitely need wheelchair, walker, bedside commode, ?other supplies. Above d/w Dr. Byrd. Admission and Anticipated Discharge Date Admission Date: May 02, 2022 Subjective Patient seen on daily rounds this morning. Continues to refuse going back to rehab and wants to go home. Has contacted an in-home caregiver group, however, they cannot start until next week. Pt states that daughter is supposed to provide help to him this week, but she works and cannot provider 24-7 care for him. He has no solid plan for how he will get transported to his appointment in [place] on . Now asking that Dr. Dior see him while he is here in the hospital to arrange for follow up xrays and allow him to bear weight on his R leg. Continues to be noncompliant with wearing R arm sling. Physical Exam Physical Exam: GENERAL: 86 yo wd/wn elderly WM. Pleasant, cooperative. NAD. LUNGS: Clear to auscultation bilaterally. No W/R/R. CARDIOVASCULAR: Regular rate and rhythm. EXTREMITIES: No edema. Non-tender. Peripheral pulses +2/4. Right leg incision dressing intact/dry. No erythema. Neg latisha's sign. Results & Data Results & Data ([facility]) Vital Signs (Past 12 Hours) Vital Signs Temp Pulse Resp BP Pulse Ox O2 Del Method 05/05/22 07:48 36.6 C 77 18 129/77 96 Room Air PG Care Time/CCT Total # of Minutes Spent Total Time Spent with Patient: Total time spent is greater than 50% in coordination of care (as documented) at patient's floor/unit and/or counseling patient: Coding Level of Care Code 72714 SUB INP/OBS CARE 2/35MIN Diagnoses Acute hip pain M25.559 Periprosthetic fracture around internal prosthetic right shoulder joint M97.31XA Anxiety F41.9 Hypercholesterolemia E78.00 BPH w/o urinary obs/LUTS N40.0
[2022-05-05] MEDS: MELATONIN 3 MG TAB PO PRN (20:43)
[2022-05-05] MEDS: PRAVASTATIN SOD 20 MG TAB PO SCH (20:43)
[2022-05-06] MEDS: ACETAMINOPHEN 500 MG TAB PO SCH ×3 (06:10→21:07)
--- NOTE | 2022-05-06 08:44 | Hospitalist Progress Note ---
Date of Service May 06, 2022 Assessment & Plan (1) Acute hip pain: Plan: Recent Distal R Femur Fx s/p ORIF on 04/15 @ [facility] [place] Was at Rehab facility in [place], didn't feel that they were meeting needs and signed out AMA, attempted to go home but dgtr called 911 when he was unable to transfer into bed Fall precautions, PT/OT consulted (he wants to go to [facility] -- therapy rec SNF/rehab) Pain control -- reported controlled -- continue tylenol/oxycodone prn, AVOID NSAIDs Bowel regimen-- no BM in 3+ days, requesting suppository -- x1 ordered and monitor response Patient f/u [facility] [place] tomorrow 05/07, but unable to make and req seen by Dr Su inpatient, discussed w/ PA and consult placed Ordered f/u xrays for R hip and shoulder after discussion w/ PA (sling not being used by patient of note) --> progressive displacement R humeral head/neck --> expected post-op changes for ORIF >??also to have his elpidio removed tomorrow Appreciate input/advancement of WB status once eval'd by Dr Su this evening DVT ppx with Eliquis 2.5mg BID (2) Periprosthetic fracture around internal prosthetic right shoulder joint: Plan: Occurred as a result of fall in March Nonoperative management w/ sling/NWB status (had not been wearing during my exam, when mentioned about it he stated "don't get me started) Encouraged utilization of sling to prevent worsening (as noted by xray completed today) Ortho on consult (3) Anxiety: Plan: Continue Alprazolam & Ambien (at home doses) Symptoms stable, but frustrated about getting bounced around and not seeing Dr Su while here/not traveling to [facility] [place] Mood improved once stated going to have Dr Su see him today (4) Hypercholesterolemia: Plan: Continue Pravastatin (5) BPH w/o urinary obs/LUTS: Plan: Continue Silodosin 8mg daily (6) Constipation: Plan: given miralax 2/, has not moved bowels, req suppository ordered dulcolax [place] x 1, add PO senna/docusate and change miralax to daily scheduled to prevent constipation Plan PT/OT consulted and rec snf/rehab -- patient wanted [facility] in past but was denied. Asked CM to see if they would accept w/ current recs. If not agreeable to other SNF, will need wheelchair/walker/bedside commode/etc -- if WB status able to be changed, this may expand possibility of patient being able to go home more safely if refuses SNF rehab. Orthopedics consulted, to see patient today Admission and Anticipated Discharge Date Admission Date: May 02, 2022 Supervising Physician Co-Signing Physician Notes PA Supervision Note: I did not personally see or examine the patient today, but I verified all ledezma points of ADDIS Santamaria's assessment and plan with the following exceptions/additions: None Subjective eval this morning, just got back from obtaining xrays. believes healing, would like WB status advanced. To see Dr Su today as well as discussed with his PA to review imaging/offer recs. He states pain controlled, was to have elpidio removed tomorrow -- will see about removing w/ ortho tomorrow. No fever/chills, chest pain, shortness of breath. +BS but not moved his bowels in several days. Would like suppository as works in the past, oral had been unsuccessful in the past. His wishes are to go to [facility] for rehab if able, had been denied in the past. Review of Systems Review of Systems: All systems reviewed & are unremarkable except as noted in HPI & below Physical Exam Physical Exam: General: WD/WN elderly male sitting up in bed, NAD, just got back from xray HEENT: head normocephalic, atraumatic Resp: CTAb, no w/c, on room air CV: RRR, no significant m/r/g, no pitting edema/calf tenderness GI: +BS, slightly distended, nontender GI: no nash MSK/Neuro: dressing w/ elpidio to his R hip, appropriately tender, no redness/drainage/warmth, calves supple noted R shoulder sling in bed, not on patient cement mason strength equal, no obvious bony tenderness in shoulder Psych: AOx3, pleasant and cooperative Results & Data Results & Data ([facility]) Vital Signs (Past 12 Hours) Vital Signs Temp Pulse Resp BP Pulse Ox O2 Del Method 05/06/22 07:31 36.9 C 76 18 123/73 98 Room Air 05/05/22 21:07 36.5 C 71 17 119/70 96 Room Air Laboratory Results 05/06/22 05/06/22 05/06/22 Range/Units 08:48 08:48 08:48 WBC (4.8-10.8) K/ul RBC (4.70-6.10) M/uL Hgb (14.0-18.0) g/dl Hct (42.0-52.0) % MCV (80.0-100.0) fL MCH (25.0-34.0) pg MCHC (32.0-36.0) g/dL RDW Std Deviation (36.4-46.3) fL RDW Coeff of Sheree (11.5-14.5) % Plt Count (130-400) K/uL MPV (9.4-12.4) fL Sodium 142 (136-145) mmol/L Potassium 4.0 (3.5-5.1) mmol/L Chloride 105 (98-107) mmol/L Carbon Dioxide 34 H (21-32) mmol/L Anion Gap 3 (3-11) BUN 20 (6-23) mg/dl Creatinine 0.77 (0.6-1.4) mg/dl Est Cr Clr Drug Dosing 63.2 ml/min Est GFR ( Amer) 94.6 ml/min Est GFR (Non-Af Amer) 81.6 ml/min BUN/Creatinine Ratio 26.0 H (10-20) Glucose 109 H (70-99(Fasting)) mg/dl Calcium 9.5 (8.5-10.1) mg/dl Total Bilirubin 0.7 (0.2-1.0) mg/dl AST 17 (13-39) U/L ALT 10 (7-52) U/L Alkaline Phosphatase 114 H (34-104) U/L Total Protein 6.4 (6.0-8.3) gm/dl Albumin 3.5 (3.4-5.0) gm/dl Globulin 2.9 (2.5-4.0) gm/dl Albumin/Globulin Ratio 1.2 (0.9-2) Vitamin B12 587 (180-914) pg/ml 25-OH Vitamin D Total Cancelled 67.6 (30-100) ng/ml 05/06/22 Range/Units 08:48 WBC 4.07 L (4.8-10.8) K/ul RBC 3.73 L (4.70-6.10) M/uL Hgb 11.9 L (14.0-18.0) g/dl Hct 36.2 L (42.0-52.0) % MCV 97.1 (80.0-100.0) fL MCH 31.9 (25.0-34.0) pg MCHC 32.9 (32.0-36.0) g/dL RDW Std Deviation 54.6 H (36.4-46.3) fL RDW Coeff of Sheree 15.3 H (11.5-14.5) % Plt Count 319 (130-400) K/uL MPV 8.7 L (9.4-12.4) fL Sodium (136-145) mmol/L Potassium (3.5-5.1) mmol/L Chloride (98-107) mmol/L Carbon Dioxide (21-32) mmol/L Anion Gap (3-11) BUN (6-23) mg/dl Creatinine (0.6-1.4) mg/dl Est Cr Clr Drug Dosing ml/min Est GFR ( Amer) ml/min Est GFR (Non-Af Amer) ml/min BUN/Creatinine Ratio (10-20) Glucose (70-99(Fasting)) mg/dl Calcium (8.5-10.1) mg/dl Total Bilirubin (0.2-1.0) mg/dl AST (13-39) U/L ALT (7-52) U/L Alkaline Phosphatase (34-104) U/L Total Protein (6.0-8.3) gm/dl Albumin (3.4-5.0) gm/dl Globulin (2.5-4.0) gm/dl Albumin/Globulin Ratio (0.9-2) Vitamin B12 (180-914) pg/ml 25-OH Vitamin D Total (30-100) ng/ml Diagnostic Findings Femur X-Ray 05/06/22 08:42 XR femur RT 2V routine CLINICAL HISTORY: f/u ORIF COMPARISON: Right femur radiographs April 14, 2022. 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 There is no periprosthetic lucency. There are expected findings following plate and screw fixation of the distal right femoral fracture. Fracture alignment appears anatomic. The hardware is intact. There are no unexpected radiopaque foreign bodies. Possible small right knee joint effusion. Vascular calcification is incidentally noted. There is no proximal right tibial or fibular fracture. IMPRESSION: 1. Expected findings following internal fixation of the distal right femoral fracture. 2. 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 ACT 112: Negative or not required by law. Electronically signed by: Renzo Daniels M.D. 05/06/2022 11:17 AM Shoulder X-Ray 05/06/22 08:42 XR shoulder RT min 2V routine CLINICAL HISTORY: Right humeral fracture. Follow-up. COMPARISON STUDY: Right shoulder 04/14/2022. FINDINGS: There is again noted a displaced oblique fracture within the right humeral head/neck. This likely extends to the humeral head prosthesis. The displacement has slightly progressed and currently demonstrates 11 mm of lateral displacement, previous measuring 7 mm. No dislocation. Mild soft tissue swelling within the right shoulder again noted. The right clavicle is intact. IMPRESSION: Progressive displacement of the right humeral head/neck fracture as described above. No significant healing identified. ACT 112: Negative or not required by law. Electronically signed by: Ben Concepcion M.D. 05/06/2022 10:13 AM PG Care Time/CCT Total # of Minutes Spent Total Time Spent with Patient: Total time spent is greater than 50% in coordination of care (as documented) at patient's floor/unit and/or counseling patient: Coding Level of Care Code 81850 SUB INP/OBS CARE 3/50MIN Diagnoses Acute hip pain M25.559 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
[2022-05-06] MEDS: PANTOprazole 40 MG TAB PO SCH (09:09)
[2022-05-06] MEDS: CHOLECALCIFEROL 1,000 UNITS 25 MCG TAB PO SCH (09:11)
[2022-05-06] MEDS: LIDOCAINE 5% 1 PATCH TD SCH (09:11)
[2022-05-06] MEDS: APIXABAN 2.5 MG TAB PO SCH ×2 (09:11→21:04)
[2022-05-06] MEDS: TRIAMCINOLONE ACET NASAL SPRAY 10.8ML BTL NAE SCH (09:12)
[2022-05-06 09:16] LABS: Hematocrit (blood only) 36.2 % (42.0-52.0); Hemoglobin 11.9 g/dl (14.0-18.0); Mean Corpuscular Hemoglobin 31.9 pg (25.0-34.0); Mean Corpuscular Hgb Conc 32.9 g/dL (32.0-36.0); Mean Corpuscular Volume 97.1 fL (80.0-100.0); Mean Platelet Volume 8.7 fL (9.4-12.4); Platelet Count 319 K/uL (130-400); RDW Coefficient of Variation 15.3 % (11.5-14.5); RDW Standard Deviation 54.6 fL (36.4-46.3); Red Blood Count 3.73 M/uL (4.70-6.10); White Blood Count 4.07 K/ul (4.8-10.8)
[2022-05-06 09:38] LABS: Albumin Globulin Ratio 1.2 (0.9-2); Albumin Level 3.5 gm/dl (3.4-5.0); Bilirubin,Total 0.7 mg/dl (0.2-1.0); Calcium 9.5 mg/dl (8.5-10.1); Creatinine Clr Calc Pharmacy 63.2 ml/min; Est GFR (African American) 94.6 ml/min; Est GFR (Non-African American) 81.6 ml/min; Globulin 2.9 gm/dl (2.5-4.0); Total Protein 6.4 gm/dl (6.0-8.3)
--- NOTE | 2022-05-06 10:14 | XRay Report ---
XR shoulder RT min 2V routine CLINICAL HISTORY: Right humeral fracture. Follow-up. COMPARISON STUDY: Right shoulder 04/14/2022. FINDINGS: There is again noted a displaced oblique fracture within the right humeral head/neck. This likely extends to the humeral head prosthesis. The displacement has slightly progressed and currently demonstrates 11 mm of lateral displacement, previous measuring 7 mm. No dislocation. Mild soft tissu e swelling within the right shoulder again noted. The right clavicle is intact. IMPRESSION: Progressive displacement of the right humeral head/neck fracture as described above. No significant healing identified. ACT 112: Negative or not required by law. Electronically signed by: Ben Concepcion M.D. 05/06/2022 10:13 AM
[2022-05-06] MEDS ORDERED: bisacodyL 10 MG SUPP PR STA (10:17)
[2022-05-06 10:49] LABS: Vitamin D, 25 Hydrox 67.6 ng/ml (30-100)
--- NOTE | 2022-05-06 11:18 | XRay Report ---
XR femur RT 2V routine CLINICAL HISTORY: f/u ORIF COMPARISON: Right femur radiographs April 14, 2022. 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 There is no peripros thetic lucency. There are expected findings following plate and screw fixation of the distal right fe moral fracture. Fracture alignment appears anatomic. The hardware is intact. There are no unexpected radiopaque foreign bodies. Possible small right knee joint effusion. Vascular calcification is incide ntally noted. There is no proximal right tibial or fibular fracture. IMPRESSION: 1. Expected findings following internal fixation of the distal right femoral fracture. 2. 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 ACT 112: Negative or not required by law. Electronically signed by: Renzo Daniels M.D. 05/06/2022 11:17 AM
[2022-05-06] MEDS: DOCUSATE SODIUM/SENNA 50/8.6MG TAB PO SCH (14:46)
[2022-05-06] MEDS: PRAVASTATIN SOD 20 MG TAB PO SCH (21:04)
[2022-05-06] MEDS: MELATONIN 3 MG TAB PO PRN (21:07)
[2022-05-07] MEDS: ACETAMINOPHEN 500 MG TAB PO SCH ×3 (05:49→21:50)
--- NOTE | 2022-05-07 07:42 | Hospitalist Progress Note ---
Date of Service May 07, 2022 Assessment & Plan (1) Acute hip pain: Plan: Recent Distal R Femur Fx s/p ORIF on 04/15 @ [facility] Was at Rehab facility in [place], didn't feel that they were meeting needs and signed out AMA, attempted to go home but dgtr called 911 when he was unable to transfer into bed Fall precautions PT/OT consulted -- wanted [facility], previously denied. CM following/refs sent to SNF/[facility]. Patient DOES have arranged caregivers during the day but may be unsafe at night w/o rehab stay for strengthening/conditioning Pain control -- tylenol, oxycodone prn, avoiding NSAIDs. Lidocaine patch to R shoulder ordered as well as topical voltaren gel QID Bowel regimen -- no BM prior in 3 days, LARGE BM following suppository. Continue bowel regimen/monitor for any issues F/u imaging for hip w/ expected post-op changes for ORIF Shoulder imaging w/ progressive displacement R humeral head/neck -- continued encouragement to use the sling to prevent further worsening Consultation placed for Dr Dior, saw patient but no note in system. Wondering about WB status to alert PT for further/subsequent evals Tigertext this AM, no response. Sent additional message this afternoon for further inquiries about WB status/recommendations DVT ppx with Eliquis 2.5mg BID (2) Periprosthetic fracture around internal prosthetic right shoulder joint: Plan: Occurred as a result of fall in March Nonoperative management w/ sling/NWB status (had not been wearing during my exam, when mentioned about it previously he stated "don't get me started) Encouraged utilization of sling to prevent worsening (as noted by xray completed 05/06) Ortho on consult as above, appreciate assistance/recs (3) Anxiety: Plan: Continue Alprazolam & Ambien (at home doses) Symptoms stable, but frustrated about getting bounced around and not seeing Dr Su while here/not traveling to [facility] Mood improved once seen by Dr Su No issues reported today, other than frustration w/ his insurance and denial to [facility] (4) Hypercholesterolemia: Plan: Continue Pravastatin (5) BPH w/o urinary obs/LUTS: Plan: Continue Silodosin 8mg daily (6) Constipation: Plan: given miralax 2/, has not moved bowels, req suppository ordered dulcolax PA x 1 05/06, add PO senna/docusate and changed miralax to daily scheduled to prevent constipation LARGE BM 05/06 reported, continue to monitor for any issues Plan PT/OT consulted and rec snf/rehab --CM follwing and refs to [facility] in place. CM to discuss options w/ patient given caregivers in place. Have until Wednesday to cancel caregivers if able to go to rehab. Awaiting official orthopedic consultation Continue PT/OT while inpatient, pain control Removal of elpidio today If no SNF and going to be going home, will need wheelchair/walker/bedside commode/etc at d/c along w/ his caregivers Admission and Anticipated Discharge Date Admission Date: May 02, 2022 Supervising Physician Co-Signing Physician Notes PA Supervision Note: I did not personally see or examine the patient today, but I verified all ledezma points of ADDIS Santamaria's assessment and plan with the following exceptions/additions: None Subjective patient seen this morning, doing better than yesterday lidocaine effective for pain control in his shoulder large BM after suppository improvement in appetite/po intake and states "eating too much" seen by Dr iDor but does not remember any instructions for advancement of WB status and will touch base w/ surgeon. He wanted [facility], discussed this was denied. He would like someone at home with him 7a-7p, discussed HH therapy only comes couple times a week for an hour or so-- he agrees he needs someone there longer. Agreeable to look at alternative SNF options and will ask CM to compile list/provide to patient and have referrals sent once he is able to review them. He states "if my right leg matched up with the left in strength I'd be as good as new". He also notes he had chronic L hip pain and to have lidoderm patch -- ordered. Also mentioned topical voltaren prn for additional control. Also will get sutures removed today. Questions/concerns addressed at this time. Physical Exam Physical Exam: General: WD/WN elderly male sitting up in recliner, not wearing sling, NAD HEENT: head normocephalic, atraumatic Resp: CTAB, slightly diminished in the bases, no w/c, on room air CV: RRR, no significant m/r/g, no pitting edema/calf tenderness GI: +BS, soft/NT GI: no nash MSK/Neuro: dressing w/ sutures to his R hip, no drainage/surrounding erythema, calves supple/nontender, pulses palpable noted R shoulder NOT in sling, clerk supervisor strength intact b/l, lidocaine patch in place to shoulder Psych: AOx3, pleasant and cooperative Results & Data Results & Data ([facility]) Vital Signs (Past 12 Hours) Vital Signs Temp Pulse Resp BP Pulse Ox O2 Del Method 05/07/22 07:21 36.7 C 74 18 124/78 98 Room Air 05/06/22 22:31 36.6 C 76 18 109/66 94 Room Air Laboratory Results 05/06/22 05/06/22 05/06/22 Range/Units 08:48 08:48 08:48 WBC (4.8-10.8) K/ul RBC (4.70-6.10) M/uL Hgb (14.0-18.0) g/dl Hct (42.0-52.0) % MCV (80.0-100.0) fL MCH (25.0-34.0) pg MCHC (32.0-36.0) g/dL RDW Std Deviation (36.4-46.3) fL RDW Coeff of Sheree (11.5-14.5) % Plt Count (130-400) K/uL MPV (9.4-12.4) fL Sodium 142 (136-145) mmol/L Potassium 4.0 (3.5-5.1) mmol/L Chloride 105 (98-107) mmol/L Carbon Dioxide 34 H (21-32) mmol/L Anion Gap 3 (3-11) BUN 20 (6-23) mg/dl Creatinine 0.77 (0.6-1.4) mg/dl Est Cr Clr Drug Dosing 63.2 ml/min Est GFR ( Amer) 94.6 ml/min Est GFR (Non-Af Amer) 81.6 ml/min BUN/Creatinine Ratio 26.0 H (10-20) Glucose 109 H (70-99(Fasting)) mg/dl Calcium 9.5 (8.5-10.1) mg/dl Total Bilirubin 0.7 (0.2-1.0) mg/dl AST 17 (13-39) U/L ALT 10 (7-52) U/L Alkaline Phosphatase 114 H (34-104) U/L Total Protein 6.4 (6.0-8.3) gm/dl Albumin 3.5 (3.4-5.0) gm/dl Globulin 2.9 (2.5-4.0) gm/dl Albumin/Globulin Ratio 1.2 (0.9-2) Vitamin B12 587 (180-914) pg/ml 25-OH Vitamin D Total Cancelled 67.6 (30-100) ng/ml 05/06/22 Range/Units 08:48 WBC 4.07 L (4.8-10.8) K/ul RBC 3.73 L (4.70-6.10) M/uL Hgb 11.9 L (14.0-18.0) g/dl Hct 36.2 L (42.0-52.0) % MCV 97.1 (80.0-100.0) fL MCH 31.9 (25.0-34.0) pg MCHC 32.9 (32.0-36.0) g/dL RDW Std Deviation 54.6 H (36.4-46.3) fL RDW Coeff of Sheree 15.3 H (11.5-14.5) % Plt Count 319 (130-400) K/uL MPV 8.7 L (9.4-12.4) fL Sodium (136-145) mmol/L Potassium (3.5-5.1) mmol/L Chloride (98-107) mmol/L Carbon Dioxide (21-32) mmol/L Anion Gap (3-11) BUN (6-23) mg/dl Creatinine (0.6-1.4) mg/dl Est Cr Clr Drug Dosing ml/min Est GFR ( Amer) ml/min Est GFR (Non-Af Amer) ml/min BUN/Creatinine Ratio (10-20) Glucose (70-99(Fasting)) mg/dl Calcium (8.5-10.1) mg/dl Total Bilirubin (0.2-1.0) mg/dl AST (13-39) U/L ALT (7-52) U/L Alkaline Phosphatase (34-104) U/L Total Protein (6.0-8.3) gm/dl Albumin (3.4-5.0) gm/dl Globulin (2.5-4.0) gm/dl Albumin/Globulin Ratio (0.9-2) Vitamin B12 (180-914) pg/ml 25-OH Vitamin D Total (30-100) ng/ml Diagnostic Findings Femur X-Ray 05/06/22 08:42 XR femur RT 2V routine CLINICAL HISTORY: f/u ORIF COMPARISON: Right femur radiographs April 14, 2022. 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 There is no periprosthetic lucency. There are expected findings following plate and screw fixation of the distal right femoral fracture. Fracture alignment appears anatomic. The hardware is intact. There are no unexpected radiopaque foreign bodies. Possible small right knee joint effusion. Vascular calcification is incidentally noted. There is no proximal right tibial or fibular fracture. IMPRESSION: 1. Expected findings following internal fixation of the distal right femoral fracture. 2. 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 ACT 112: Negative or not required by law. Electronically signed by: Renzo Daniels M.D. 05/06/2022 11:17 AM Shoulder X-Ray 05/06/22 08:42 XR shoulder RT min 2V routine CLINICAL HISTORY: Right humeral fracture. Follow-up. COMPARISON STUDY: Right shoulder 04/14/2022. FINDINGS: There is again noted a displaced oblique fracture within the right humeral head/neck. This likely extends to the humeral head prosthesis. The displacement has slightly progressed and currently demonstrates 11 mm of lateral displacement, previous measuring 7 mm. No dislocation. Mild soft tissue swelling within the right shoulder again noted. The right clavicle is intact. IMPRESSION: Progressive displacement of the right humeral head/neck fracture as described above. No significant healing identified. ACT 112: Negative or not required by law. Electronically signed by: Ben Concepcion M.D. 05/06/2022 10:13 AM PG Care Time/CCT Total # of Minutes Spent Total Time Spent with Patient: Total time spent is greater than 50% in coordination of care (as documented) at patient's floor/unit and/or counseling patient: Coding Level of Care Code 50258 SUB INP/OBS CARE 2/35MIN Diagnoses Acute hip pain M25.559 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
[2022-05-07 08:27] LABS: Hematocrit (blood only) 34.3 % (42.0-52.0); Hemoglobin 11.3 g/dl (14.0-18.0); Mean Corpuscular Hemoglobin 31.7 pg (25.0-34.0); Mean Corpuscular Hgb Conc 32.9 g/dL (32.0-36.0); Mean Corpuscular Volume 96.1 fL (80.0-100.0); Mean Platelet Volume 8.9 fL (9.4-12.4); Platelet Count 296 K/uL (130-400); RDW Coefficient of Variation 15.2 % (11.5-14.5); RDW Standard Deviation 54.1 fL (36.4-46.3); Red Blood Count 3.57 M/uL (4.70-6.10); White Blood Count 4.86 K/ul (4.8-10.8)
[2022-05-07 08:32] LABS: BUN Creatinine Ratio 38.4 (10-20); Calcium 9.8 mg/dl (8.5-10.1); Creatinine Clr Calc Pharmacy 56.6 ml/min; Est GFR (African American) 90.4 ml/min; Potassium 4.1 mmol/L (3.5-5.1)
[2022-05-07] MEDS: PANTOprazole 40 MG TAB PO SCH (08:32)
[2022-05-07] MEDS: CHOLECALCIFEROL 1,000 UNITS 25 MCG TAB PO SCH (08:32)
[2022-05-07] MEDS: APIXABAN 2.5 MG TAB PO SCH ×2 (08:32→20:31)
[2022-05-07] MEDS: LIDOCAINE 5% 1 PATCH TD SCH ×2 (08:33→20:50)
[2022-05-07] MEDS: DOCUSATE SODIUM/SENNA 50/8.6MG TAB PO SCH (08:33)
[2022-05-07] MEDS: TRIAMCINOLONE ACET NASAL SPRAY 10.8ML BTL NAE SCH (08:34)
[2022-05-07] MEDS: POLYETHYLENE (MIRALAX) 17 GM PACK PO SCH (08:34)
[2022-05-07] MEDS ORDERED: Nursing to Pharmacy Communication SCH ×2 (08:45→17:45)
[2022-05-07] MEDS ORDERED: LIDOCAINE 5% 1 PATCH TD SCH ×3 (14:15→21:00)
--- NOTE | 2022-05-07 17:34 | Orthopedic Consultation ---
Date of Consultation May 07, 2022 Assessment & Plan (1) Periprosthetic fracture around internal prosthetic right shoulder joint: Although the fracture is angulated fracture fragments are in continuity and the patient is elderly and would recommend nonsurgical management over surgical treatment. At this time very gentle range of motion can be started and he will be able to be weightbearing on this until there is radiographic more substantial healing. We will repeat x-rays in 3 weeks. (2) Periprosthetic fracture of shaft of femur: Periprosthetic femur fracture. Had a hinged brace for additional support during transfers. It is going to be difficult for him to be independent as he only can bear weight on his left leg and his left arm. Recommending rehabilitation hospital or alf care. Patient will be able to go home. Some gentle range of motion of the knee up to 90 degrees is permitted at this time with therapy. No aggressive range of motion. Follow-up in 3 weeks with x-rays. History of Present Illness Reason for Consultation: Follow-up care right humerus fracture and right femur periprosthetic fracture Attending Physician: Hanh Gurrola MD History of Present Illness 86-year-old male known to my practice prior to an injury for which she was transferred [facility] for definitive treatment. He had a proximal humerus fracture which has been treated in a sling and he has a periprosthetic femur fracture treated with open reduction internal fixation. Allergies Allergy/AdvReac Type Severity Reaction Status Date / Time No Known Allergies Allergy Verified 05/01/22 21:37 Home Medications Medication Instructions Recorded Confirmed Type noepsn-fyysxwe-vhi palm-min 17 1 tab PO DAILY 10/28/18 05/01/22 History [Prostate Therapy] omega 3,6,9 combination no.7 1 cap PO DAILY 10/28/18 05/01/22 History melatonin 10 mg tablet 5 mg PO HS PRN Sleep 11/07/18 05/01/22 History meclizine 25 mg tablet 25 mg PO TID PRN dizziness #30 tabs 05/24/20 05/01/22 Rx tlsgduvi-arf-tsugx acid 300 1 tab PO DAILY 09/05/20 05/01/22 History mcg-lycopene 600 mcg-lutein 300 mcg tablet (Centrum Silver Men) super beta prostate 1 tab PO DAILY 09/05/20 05/01/22 History coenzyme Q10 50 mg capsule 50 mg PO DAILY 10/15/21 05/01/22 History vardenafil 10 mg tablet 10 mg PO DAILY PRN sexual activity 12/15/21 05/01/22 Rx #30 tabs acetaminophen 325 mg tablet 650 mg PO Q6H PRN PAIN/FEVER 05/01/22 05/01/22 History (Tylenol) acetaminophen 500 mg tablet 1,000 mg PO Q8H 05/01/22 05/01/22 History (Tylenol Extra Strength) alprazolam 0.25 mg tablet 0.25 mg PO BID PRN Anxiety 05/01/22 05/01/22 History apixaban 2.5 mg tablet (Eliquis) 2.5 mg PO BID 05/01/22 05/01/22 History cholecalciferol (vitamin D3) 50 50 mcg PO DAILY 05/01/22 05/01/22 History mcg (2,000 unit) capsule (Vitamin D3) esomeprazole magnesium 40 mg 40 mg PO DAILY 05/01/22 05/01/22 History capsule,delayed release lidocaine 5 % topical patch 1 patch topical DAILY 05/01/22 05/01/22 History losartan 25 mg tablet 25 mg PO DAILY 05/01/22 05/01/22 History pravastatin 20 mg tablet 20 mg PO HS 05/01/22 05/01/22 History silodosin 8 mg capsule 8 mg PO DAILY 05/01/22 05/01/22 History triamcinolone acetonide 55 mcg 1 spray intranasal DAILY 05/01/22 05/01/22 History nasal spray aerosol (Nasacort Allergy) vitamin A-vitamin C-vit E-min 1 tab PO DAILY 05/01/22 05/01/22 History tablet zolpidem 5 mg tablet (Ambien) 5 mg PO HS PRN Sleep 05/01/22 05/01/22 History Patient History Medical History Allergic rhinitis Anxiety Arthritis Benign prostatic hyperplasia with urinary obstruction Cataract Chronic reflux esophagitis Degenerative joint disease involving multiple joints Hypercholesterolemia Hypertension Insomnia Obstructive sleep apnea Premature ventricular contractions Surgical History History of cataract surgery History of colonoscopy History of hip replacement, total History of shoulder surgery History of total knee arthroplasty Family History Son Primary biliary cirrhosis Social History Smoking Status: Never smoker Hx Alcohol Use: Yes Alcohol type: wine Hx Substance Use: No Preferred Language: Palestinian Communication Ability: Effective Managed Care Liaison Required: No Beliefs That Will Affect Care: None marital status: / Current Living Situation: Alone current occupational status: retired Other Information That Helps Us Care for You: No Feels Safe at Home: Yes Safety Concerns: Feels Safe At This Time Assistive Devices: Walker and Wheelchair Assistive Devices Comment: prior to fall was independent in all activites Review of Systems Review of Systems: Presently noncontributory. Patient mentally struggling with his loss of independence. Physical Exam Physical Exam: Right shoulder exam demonstrates no crepitation in the proximal humerus moves with the shaft and with just very gentle range of motion with about 30 degrees of flexion and AB duction and rotation he does not have any substantial pain. His right lower extremity demonstrates a very long incision from his knee all the way up to his hip. Closure is benign there is no drainage no erythema. Skin closures with nylon sutures. Wound appears to be healed. Patient can actively flex his hip and knee about 30 degrees does not really have pain with that maneuver he has no deformity or malalignment. Neuro circulatory exam within normal limits Results & Data ([facility]) Vital Signs (Past 12 Hours) Vital Signs Temp Pulse Resp BP Pulse Ox O2 Del Method 05/07/22 15:24 36.8 C 75 20 123/79 95 Room Air 05/07/22 07:21 36.7 C 74 18 124/78 98 Room Air Diagnostic Findings Radiographs reviewed of the shoulder demonstrates he has a [place] resurfacing hemiarthroplasty which is normally located within the glenoid. The implant is in some varus alignment to the fracture which is compressed some medially and there is a moderately displaced greater tuberosity fracture but not superiorly and there is bone contact of all fracture fragments. The femur fracture is anatomically aligned and has plate fixation and screw fixation which extends from his total hip replacement stem proximally down to the knee at the level of the knee replacement.
[2022-05-07] MEDS: DICLOFENAC SOD 1% GEL 100 GM TUBE EXT SCH ×2 (18:17→20:31)
[2022-05-07] MEDS: PRAVASTATIN SOD 20 MG TAB PO SCH (20:36)
[2022-05-07] MEDS: MELATONIN 3 MG TAB PO PRN (20:38)
[2022-05-08] MEDS: ACETAMINOPHEN 500 MG TAB PO SCH ×3 (05:46→20:51)
[2022-05-08 07:52] LABS: Calcium 9.4 mg/dl (8.5-10.1); Magnesium 1.8 mg/dl (1.7-2.4); Potassium 3.8 mmol/L (3.5-5.1)
[2022-05-08 07:57] LABS: Creatinine Clr Calc Pharmacy 60.8 ml/min; Est GFR (African American) 93.1 ml/min; Est GFR (Non-African American) 80.3 ml/min
[2022-05-08] MEDS: CHOLECALCIFEROL 1,000 UNITS 25 MCG TAB PO SCH (08:58)
[2022-05-08] MEDS: DOCUSATE SODIUM/SENNA 50/8.6MG TAB PO SCH (08:59)
[2022-05-08] MEDS: POLYETHYLENE (MIRALAX) 17 GM PACK PO SCH ×2 (08:59→20:53)
[2022-05-08] MEDS: PANTOprazole 40 MG TAB PO SCH (08:59)
[2022-05-08] MEDS: APIXABAN 2.5 MG TAB PO SCH ×2 (08:59→20:50)
[2022-05-08] MEDS: TRIAMCINOLONE ACET NASAL SPRAY 10.8ML BTL NAE SCH (09:02)
[2022-05-08] MEDS: DICLOFENAC SOD 1% GEL 100 GM TUBE EXT SCH ×4 (09:04→20:53)
[2022-05-08] MEDS: LIDOCAINE 5% 1 PATCH TD SCH ×2 (09:04→20:52)
--- NOTE | 2022-05-08 10:13 | Hospitalist Progress Note ---
Date of Service May 08, 2022 Assessment & Plan (1) Acute hip pain: Plan: Recent Distal R Femur Fx s/p [place]IF on 04[place]15 [place] [facility] [place]hab facility in [place], didn't feel that they were meeting needs and signed out AMA, attempted to go home but dgtr called 911 when he was unable to transfer into bed Fall precautions PT/OT consulted -- wanted [facility], previously denied. CM following/refs sent to SNF/[facility]. Patient DOES have arranged caregivers during the day but may be unsafe at night w/o rehab stay for strengthening/conditioning Pain control -- tylenol, oxycodone prn, avoiding NSAIDs. Lidocaine patch to R shoulder ordered as well as topical voltaren gel QID. Has not really been using any Oxycodone Bowel regimen -- LARGE BM following suppository reported. Will increase miralax to BID, add additional suppository if needed F/u imaging for hip w/ expected post-op changes for ORIF Shoulder imaging w/ progressive displacement R humeral head/neck -- continued encouragement to use the sling to prevent further worsening Consultation placed for Dr Dior Patient to remain NWB RUE/RLL, repeat imaging in 3 weeks in follow up. Recs for continued PT/rehab PT/OT consulted -- planning for [facility] once auth received DVT ppx with Eliquis 2.5mg BID (2) Periprosthetic fracture around internal prosthetic right shoulder joint: Plan: Occurred as a result of fall in March Nonoperative management w/ sling/NWB status (had not been wearing during my exam in days prior, putting on for therapy 05/08) Encouraged utilization of sling to prevent worsening (as noted by xray completed 05/06) Ortho on consult as above, f/u outpatient and remain NWB at present time and repeat imaging 3 weeks (3) Anxiety: Plan: Continue Alprazolam & Ambien (at home doses) Symptoms stable, but frustrated about getting bounced around and not seeing Dr Su while here/not traveling to [facility] Mood improved once seen by Dr Su No issues reported today, other than frustration w/ his insurance and denial to [facility] (4) Hypercholesterolemia: Plan: Continue Pravastatin (5) BPH w/o urinary obs/LUTS: Plan: Continue Silodosin 8mg daily -- not formulary but denying issues w/ voiding presently (6) Constipation: Plan: given miralax 05/05, has not moved bowels, req suppository ordered dulcolax HI x 1 05/06, add PO senna/docusate and changed miralax to BID to prevent constipation LARGE BM 05/06 reported, continue to monitor for any issues and additional suppository if needed Plan planning for [facility] once insurance auth received will need f/u imaging in 3 weeks with orthopedics Admission and Anticipated Discharge Date Admission Date: May 02, 2022 Supervising Physician Co-Signing Physician Notes PA Supervision Note: I did not personally see or examine the patient today, but I verified all ledezma points of ADDIS Santamaria's assessment and plan with the following exceptions/additions: None Subjective eval this morning, getting ready to work with therapy. sling being placed on currently, encouraged use. Reports pain slightly improved/controlled. Using tylenol/lidocaine patches and does report some additional relief with topical Voltaren. Agreeable to [facility] for rehab. He is concerned about taking care of his affairs. Discussed possibly short term stay there and if able to have improvement in ambulation/safely using ambulation devices/etc could potentially dc from SNF w/ aides but will need to see how he does. Will need repeat imaging in 3 weeks. To use hinged brace (in bed with patient currently). Drake removed yesterday. Eating/drinking, passing gas but no BM yet. Discussed increasing miralax and hopefully w/ increased ambulation will have improvement. Discussed if needed will have suppository in place. Questions/concerns addressed, CM applied for insurance auth. Physical Exam Physical Exam: General: WD/WN elderly male sitting up in bed working with therapy to get his sling on, NAD HEENT: head normocephalic, atraumatic Resp: CTAB, slightly diminished in the bases, no w/c, on room air CV: RRR, no significant m/r/g, no pitting edema/calf tenderness GI: +BS, soft/NT GI: no nash MSK/Neuro: RLE incision s/p suture removal, well approximated, no evidence for erythema/drainage, minimal tenderness to palpation, no calf tenderness RUE being placed in sling, NVI, pulses palpable, did not take through ROM at this time Psych: AOx3, pleasant and cooperative Results & Data Results & Data ([facility]) Vital Signs (Past 12 Hours) Vital Signs Temp Pulse Resp BP Pulse Ox O2 Del Method 05/08/22 07:22 36.7 C 76 16 113/70 96 Room Air Laboratory Results 05/08/22 Range/Units 07:10 Sodium 142 (136-145) mmol/L Potassium 3.8 (3.5-5.1) mmol/L Chloride 108 H (98-107) mmol/L Carbon Dioxide 31 (21-32) mmol/L Anion Gap 3 (3-11) BUN 28 H (6-23) mg/dl Creatinine 0.80 (0.6-1.4) mg/dl Est Cr Clr Drug Dosing 60.8 ml/min Est GFR ( Amer) 93.1 ml/min Est GFR (Non-Af Amer) 80.3 ml/min BUN/Creatinine Ratio 35.0 H (10-20) Glucose 94 (70-99(Fasting)) mg/dl Calcium 9.4 (8.5-10.1) mg/dl Magnesium 1.8 (1.7-2.4) mg/dl PG Care Time/CCT Total # of Minutes Spent Total Time Spent with Patient: Total time spent is greater than 50% in coordination of care (as documented) at patient's floor/unit and/or counseling patient: Coding Level of Care Code 67866 SUB INP/OBS CARE 2/35MIN Diagnoses Acute hip pain M25.559 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
[2022-05-08] MEDS: PRAVASTATIN SOD 20 MG TAB PO SCH (20:50)
[2022-05-08] MEDS: MELATONIN 3 MG TAB PO PRN (20:56)
[2022-05-09] MEDS: ACETAMINOPHEN 500 MG TAB PO SCH ×3 (05:09→19:52)
--- NOTE | 2022-05-09 08:26 | Hospitalist Progress Note ---
Date of Service May 09, 2022 Assessment & Plan (1) Acute hip pain: Plan: Recent Distal R Femur Fx s/p ORIF on 04/15 @ [facility] Was at Rehab facility in [place], didn't feel that they were meeting needs and signed out AMA, attempted to go home but dgtr called 911 when he was unable to transfer into bed Fall precautions PT/OT consulted -- wanted [facility], previously denied. CM following/refs sent to SN[facility] [facility]. Patient DOES have arranged caregivers during the day but may be unsafe at night w/o rehab stay for strengthening/conditioning Pain control -- tylenol, oxycodone prn, avoiding NSAIDs. Lidocaine patch to R shoulder ordered as well as topical voltaren gel QID. Has not really been using any Oxycodone Bowel regimen -- LARGE BM following suppository reported. Will increase miralax to BID, add additional suppository if needed F/u imaging for hip w/ expected post-op changes for ORIF Shoulder imaging w/ progressive displacement R humeral head/neck -- continued encouragement to use the sling to prevent further worsening Consultation placed for Dr Dior Patient to remain NWB RUE/RLL, repeat imaging in 3 weeks in follow up. Recs for continued PT/rehab PT/OT consulted -- planning for [facility] once auth received DVT ppx with Eliquis 2.5mg BID 05/09 --> [facility] unable to take today, hopefully tomorrow. Patient may refuse to go if not able to accommodate tomorrow. 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: Plan: Occurred as a result of fall in March Nonoperative management w/ sling/NWB status (had not been wearing during my exam in days prior, putting on for therapy 05/08) Encouraged utilization of sling to prevent worsening (as noted by xray completed 05/06) Ortho on consult as above, f/u outpatient and remain NWB at present time and repeat imaging 3 weeks (3) Anxiety: Plan: Continue Alprazolam & Ambien (at home doses) Symptoms stable, but frustrated about getting bounced around and not seeing Dr Su while here/not traveling to [facility] Mood improved once seen by Dr Su No issues reported today, other than frustration w/ his insurance and denial to [facility] (4) Hypercholesterolemia: Plan: Continue Pravastatin (5) BPH w/o urinary obs/LUTS: Plan: Continue Silodosin 8mg daily -- not formulary but denying issues w/ voiding presently (6) Constipation: Plan: given miralax 05/05, has not moved bowels, req suppository ordered dulcolax [place] x 1 05/06, add PO senna/docusate and changed miralax to BID to prevent constipation LARGE BM 05/06 reported, continue to monitor for any issues and additional suppository if needed -- pt would like dose this afternoon if not moving bowels by 2pm -- discussed w/ nursing to admin if no BM Plan planning for [facility] but unable to take-- hopefully tomorrow will need f/u imaging in 3 weeks with orthopedics Admission and Anticipated Discharge Date Admission Date: May 02, 2022 Supervising Physician Co-Signing Physician Notes PA Supervision Note: I did not personally see or examine the patient today, but I verified all ledezma points of ADDIS Santamaria's assessment and plan with the following exceptions/additions: None Subjective Eval this morning, discouraged by news not going to placement and he would like to entertain home if not going tomorrow. Passing gas, no BM. He would like suppository if no BM this afternoon. No fever/chills, chest pain, shortness of breath, abdominal pain, nausea. Physical Exam Physical Exam: General: WD/WN elderly male sitting up in bed, NAD Resp: CTAB, on room air CV: RRR, no m/r/g, no pitting edema/calf tenderness GI: +BS, soft/NT GI: no nash MSK/Neuro: RLE incision s/p suture removal, well approximated, no evidence for erythema/drainage, minimal tenderness to palpation, no calf tenderness RUE w/o sling in bed, pulses palpable, sensation intact Psych: AOx3, cooperative but frustrated Results & Data Results & Data ([facility]) Vital Signs (Past 12 Hours) Vital Signs Temp Pulse Resp BP Pulse Ox O2 Del Method 05/09/22 07:41 36.7 C 67 18 126/82 97 Room Air 05/08/22 22:34 36.5 C 66 16 106/70 Room Air Laboratory Results 05/09/22 Range/Units 09:03 Sodium 141 (136-145) mmol/L Potassium 3.9 (3.5-5.1) mmol/L Chloride 105 (98-107) mmol/L Carbon Dioxide 33 H (21-32) mmol/L Anion Gap 3 (3-11) BUN 23 (6-23) mg/dl Creatinine 0.80 (0.6-1.4) mg/dl Est Cr Clr Drug Dosing 60.8 ml/min Est GFR ( Amer) 93.1 ml/min Est GFR (Non-Af Amer) 80.3 ml/min BUN/Creatinine Ratio 28.8 H (10-20) Glucose 106 H (70-99(Fasting)) mg/dl Calcium 9.6 (8.5-10.1) mg/dl PG Care Time/CCT Total # of Minutes Spent Total Time Spent with Patient: Total time spent is greater than 50% in coordination of care (as documented) at patient's floor/unit and/or counseling patient: Coding Level of Care Code 01958 SUB INP/OBS CARE 04/22MIN Diagnoses Acute hip pain M25.559 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
[2022-05-09] MEDS: CHOLECALCIFEROL 1,000 UNITS 25 MCG TAB PO SCH (08:34)
[2022-05-09] MEDS: POLYETHYLENE (MIRALAX) 17 GM PACK PO SCH ×2 (08:34→19:50)
[2022-05-09] MEDS: DOCUSATE SODIUM/SENNA 50/8.6MG TAB PO SCH (08:34)
[2022-05-09] MEDS: APIXABAN 2.5 MG TAB PO SCH ×2 (08:34→19:49)
[2022-05-09] MEDS: PANTOprazole 40 MG TAB PO SCH (08:34)
[2022-05-09] MEDS: LIDOCAINE 5% 1 PATCH TD SCH ×2 (08:34→19:50)
[2022-05-09] MEDS: DICLOFENAC SOD 1% GEL 100 GM TUBE EXT SCH ×5 (08:36→19:54)
[2022-05-09] MEDS: TRIAMCINOLONE ACET NASAL SPRAY 10.8ML BTL NAE SCH (08:36)
[2022-05-09 09:47] LABS: BUN Creatinine Ratio 28.8 (10-20); Calcium 9.6 mg/dl (8.5-10.1); Creatinine Clr Calc Pharmacy 60.8 ml/min; Est GFR (African American) 93.1 ml/min; Est GFR (Non-African American) 80.3 ml/min; Potassium 3.9 mmol/L (3.5-5.1)
[2022-05-09] MEDS ORDERED: bisacodyL 10 MG SUPP PR PRN (10:14)
[2022-05-09] MEDS: MELATONIN 3 MG TAB PO PRN (19:49)
[2022-05-09] MEDS: PRAVASTATIN SOD 20 MG TAB PO SCH (19:51)
[2022-05-10] MEDS: ACETAMINOPHEN 500 MG TAB PO SCH ×3 (05:33→20:01)
[2022-05-10] MEDS: DOCUSATE SODIUM/SENNA 50/8.6MG TAB PO SCH (08:45)
[2022-05-10] MEDS: PANTOprazole 40 MG TAB PO SCH (08:45)
[2022-05-10] MEDS: CHOLECALCIFEROL 1,000 UNITS 25 MCG TAB PO SCH (08:45)
[2022-05-10] MEDS: DICLOFENAC SOD 1% GEL 100 GM TUBE EXT SCH ×4 (08:47→20:04)
[2022-05-10] MEDS: APIXABAN 2.5 MG TAB PO SCH ×2 (08:47→20:00)
[2022-05-10] MEDS: POLYETHYLENE (MIRALAX) 17 GM PACK PO SCH ×2 (08:48→20:04)
[2022-05-10] MEDS: LIDOCAINE 5% 1 PATCH TD SCH ×3 (08:48→20:03)
[2022-05-10] MEDS: TRIAMCINOLONE ACET NASAL SPRAY 10.8ML BTL NAE SCH (08:48)
--- NOTE | 2022-05-10 11:20 | Hospitalist Progress Note ---
Date of Service May 10, 2022 Assessment & Plan (1) Acute hip pain: Plan: Recent Distal R Femur Fx s/p ORIF on 04/15 @ [facility] [place] Was at Rehab facility in [place], didn't feel that they were meeting needs and signed out AMA, attempted to go home but dgtr called 911 when he was unable to transfer into bed Fall precautions PT/OT consulted -- wanted [facility], previously denied. CM following/refs sent to SN[facility]. Patient DOES have arranged caregivers during the day but may be unsafe at night w/o rehab stay for strengthening/conditioning Pain control -- tylenol, oxycodone prn, avoiding NSAIDs. Lidocaine patch to R shoulder ordered as well as topical voltaren gel QID. Has not really been using any Oxycodone Bowel regimen -- LARGE BM following suppository reported. Will increase miralax to BID, add additional suppository if needed F/u imaging for hip w/ expected post-op changes for ORIF Shoulder imaging w/ progressive displacement R humeral head/neck -- continued encouragement to use the sling to prevent further worsening Consultation placed for Dr Dior Patient to remain NWB RUE/RLL, repeat imaging in 3 weeks in follow up. Recs for continued PT/rehab PT/OT consulted -- planning for [facility] once auth received DVT ppx with Eliquis 2.5mg BID -- would check timing given for DVT proph, suspect only needing 3 weeks 05/10 --> [facility] unable to take again today. Patient frustrated, CM following. He states if unable to take tomorrow he really would like to consider home w caregivers previously arranged (did not cancel last week per discussion w/ Missy from CM) +BM 05/09 Planning for d/c tomorrow whether to home vs [facility] (2) Periprosthetic fracture around internal prosthetic right shoulder joint: Plan: Occurred as a result of fall in March Nonoperative management w/ sling/NWB status (had not been wearing during my exam in days prior, putting on for therapy 05/08) Encouraged utilization of sling to prevent worsening (as noted by xray completed 05/06) Ortho on consult as above, f/u outpatient and remain NWB at present time and repeat imaging 3 weeks from 05/06 (on May 27) (3) Anxiety: Plan: Continue Alprazolam & Ambien (at home doses) Symptoms stable, but frustrated about getting bounced around and not seeing Dr Su while here/not traveling to [facility] [place] Mood improved once seen by Dr Su No issues reported today, other than frustration with ongoing inpatient stay/unable to go to [facility] today (4) Hypercholesterolemia: Plan: Continue Pravastatin Of note, hx HTN on losartan 25mg daily but hasn't gotten while inpatient Given BPs stable off this medication, can consider continuing to hold at discharge vs resume/monitor if elevations (5) BPH w/o urinary obs/LUTS: Plan: Continue Silodosin 8mg daily -- not formulary but denying issues w/ voiding presently UOP recorded is slightly low, but unsure if possibly having unmeasured voids (6) Constipation: Plan: given miralax 05/05, has not moved bowels, req suppository ordered dulcolax [place] x 1 05/06, add PO senna/docusate and changed miralax to BID to prevent constipation LARGE BM 05/06 reported, +BM 05/09 Continue bowel regimen, suppository if needed at d/c if not moving his bowels Plan planning for [facility] but unable to take-- hopefully tomorrow or he may (and has voiced) wanting to go home w/ caregivers and HH therapy will need f/u imaging in 3 weeks with orthopedics Admission and Anticipated Discharge Date Admission Date: May 02, 2022 Supervising Physician Co-Signing Physician Notes PA Supervision Note: I did not personally see or examine the patient today, but I verified all ledezma points of ADDIS Santamaria's assessment and plan with the following exceptions/additions: None Subjective evaluated this morning, up in chair, paying his bills. pain doing alright, controlled. only painful when pressing deeply. frustrated w/ not going to rehab today and if they are unable to accommodate tomorrow he believes he would be better off at home w/ prior arrangements "plan B". No fever/chills, chest pain, shortness of breath, abdominal pain, nausea or vomiting. Physical Exam Physical Exam: General: WD/WN elderly male sitting up in recliner, NAD Resp: CTAB, on room air 97% CV: RRR, no m/r/g, no pitting edema/calf tenderness GI: +BS, soft/NT GI: no nash MSK/Neuro: RLE incision s/p suture removal, well approximated, no evidence for erythema/drainage, minimal tenderness to palpation, no calf tenderness RUE w/o sling in bed, pulses palpable, sensation intact Psych: AOx3, cooperative but frustrated Results & Data Results & Data ([facility]) Vital Signs (Past 12 Hours) Vital Signs Temp Pulse Resp BP Pulse Ox O2 Del Method 05/10/22 07:33 36.6 C 69 18 111/73 97 Room Air PG Care Time/CCT Total # of Minutes Spent Total Time Spent with Patient: Total time spent is greater than 50% in coordination of care (as documented) at patient's floor/unit and/or counseling patient: Coding Level of Care Code 95081 SUB INP/OBS CARE 1/25MIN Diagnoses Acute hip pain M25.559 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
[2022-05-10] MEDS: MELATONIN 3 MG TAB PO PRN (20:00)
[2022-05-10] MEDS: PRAVASTATIN SOD 20 MG TAB PO SCH (20:04)
[2022-05-11] MEDS: ACETAMINOPHEN 500 MG TAB PO SCH (05:40)
--- NOTE | 2022-05-11 07:51 | Hospitalist Progress Note ---
Date of Service May 11, 2022 Assessment & Plan Admission and Anticipated Discharge Date Admission Date: May 02, 2022 Results & Data Results & Data ([facility]) Vital Signs (Past 12 Hours) Vital Signs Temp Pulse Resp BP Pulse Ox O2 Del Method 05/11/22 07:33 36.7 C 70 18 112/71 94 Room Air 05/10/22 21:40 36.6 C 67 18 104/63 100 Room Air PG Care Time/CCT Total # of Minutes Spent Total Time Spent with Patient: Total time spent is greater than 50% in coordination of care (as documented) at patient's floor/unit and/or counseling patient: Coding
[2022-05-11] MEDS: CHOLECALCIFEROL 1,000 UNITS 25 MCG TAB PO SCH (08:13)
[2022-05-11] MEDS: DOCUSATE SODIUM/SENNA 50/8.6MG TAB PO SCH (08:13)
[2022-05-11] MEDS: LIDOCAINE 5% 1 PATCH TD SCH (08:13)
[2022-05-11] MEDS: APIXABAN 2.5 MG TAB PO SCH (08:13)
[2022-05-11] MEDS: PANTOprazole 40 MG TAB PO SCH (08:13)
[2022-05-11] MEDS: DICLOFENAC SOD 1% GEL 100 GM TUBE EXT SCH (08:13)
[2022-05-11] MEDS: TRIAMCINOLONE ACET NASAL SPRAY 10.8ML BTL NAE SCH (08:14)
[2022-05-11] MEDS: POLYETHYLENE (MIRALAX) 17 GM PACK PO SCH (08:14)
[2022-05-11 08:45] LABS: BUN Creatinine Ratio 27.3 (10-20); Calcium 9.5 mg/dl (8.5-10.1); Creatinine Clr Calc Pharmacy 63.2 ml/min; Est GFR (African American) 94.6 ml/min; Est GFR (Non-African American) 81.6 ml/min
--- NOTE | 2022-05-11 10:06 | Discharge Summary ---
Date of Service May 11, 2022 Admission HPI Per Admitting Provider This is an 86-year-old male with a history of depression, anxiety, BPH with urinary obstruction, GERD, hypertension, hypercholesteremia, JANELL, cervical radiculopathy who presented to [facility] [address] for evaluation of hip pain. Patient was recently discharged from after falling on ice, landing on his right knee and arm. X-rays demonstrated periprosthetic right proximal humerus fracture and periprosthetic distal femoral diaphysis fracture that necessitated repair of the femur fracture. He was on Eliquis 2.5 mg twice daily for DVT prophylaxis. He was ultimately discharged to [facility] in [place]. He did not like the care he was receiving there so he left AMA. He he says that he is very motivated to participate in rehab. He feels that the previous rehab facility was not meeting his needs, and he would be better served somewhere locally or at home with home PT. He is understanding that physical and occupational retraining are incredibly important to preventing long-term negative outcomes. In the ED, patient was found to be hemodynamically stable with normal blood pressure, heart rate, oxygen saturation. Admission labs revealing stable mild chronic anemia with hemoglobin 13.7. INR 1.0. BUN 21/creatinine 0.9. COVID- negative. Admission Exam Per Admitting Provider General: 86-year old male who is alert, oriented, and appears in no acute distress. HEENT: NCAT. - Eyes - Sclera are white, anicteric, an d without injection. - Mouth - MMM - Neck - supple, no appreciable JVD Cardiac: Normal rate and regular rhythm; S1 and S2 present with no murmurs, rubs, or gallops. Pulmonary: Good respiratory effort with symmetric expansion of the chest. No use of accessory muscles. Lungs were clear to auscultation bilaterally with no crackles or wheezes. Abdominal: Normoactive bowel sounds. Abdomen was soft, nondistended, and non- tender to palpation. Extremities: Upper and lower extremities are warm and well perfused. Bandage along R lateral thigh c/d/i. Peripheral strength at ankle is 5/5. No peripheral edema in the lower extremities bilaterally Psych: Well-developed, well-nourished, appropriately dressed for occasion. Behavior is cooperative and appropriate. Affect is WNL. Insight is appropriate. Principal Diagnosis Acute Hip Pain, Need for rehab Discharge Exam General: WD/WN elderly male sitting up in bed, NAD HEENT: head normocephalic, atraumatic, mmm, trachea midline Resp: CTAB, on room air CV: RRR, no m/r/g, no pitting edema/calf tenderness GI: +BS, soft/NT GI: no nash MSK/Neuro: RLE incision s/p suture removal, well approximated, no evidence for erythema/drainage, minimal tenderness to palpation, no calf tenderness RUE w/ ecchymosis to shoulder, tenderness to palpation but improved from days prior, discussed to be in a sling, pulses palpable, sensation intact Psych: AOx3, cooperative but frustrated about going to rehab but hopeful to get home soon as he is stable to be by himself Discharge Data Allergies Allergy/AdvReac Type Severity Reaction Status Date / Time No Known Allergies Allergy Verified 05/01/22 21:37 Consultations 05/01/22 21:20 ED Decision to Admit Stat 05/06/22 08:38 Consult Orthopedic Surgery Routine Ordered Studies Femur X-Ray 05/06/22 08:42 XR femur RT 2V routine CLINICAL HISTORY: f/u ORIF COMPARISON: Right femur radiographs April 14, 2022. 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 There is no periprosthetic lucency. There are expected findings following plate and screw fixation of the distal right femoral fracture. Fracture alignment appears anatomic. The hardware is intact. There are no unexpected radiopaque foreign bodies. Possible small right knee joint effusion. Vascular calcification is incidentally noted. There is no proximal right tibial or fibular fracture. IMPRESSION: 1. Expected findings following internal fixation of the distal right femoral fracture. 2. 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 ACT 112: Negative or not required by law. Electronically signed by: Renzo Daniels M.D. 05/06/2022 11:17 AM Shoulder X-Ray 05/06/22 08:42 XR shoulder RT min 2V routine CLINICAL HISTORY: Right humeral fracture. Follow-up. COMPARISON STUDY: Right shoulder 04/14/2022. FINDINGS: There is again noted a displaced oblique fracture within the right humeral head/neck. This likely extends to the humeral head prosthesis. The displacement has slightly progressed and currently demonstrates 11 mm of lateral displacement, previous measuring 7 mm. No dislocation. Mild soft tissue swelling within the right shoulder again noted. The right clavicle is intact. IMPRESSION: Progressive displacement of the right humeral head/neck fracture as described above. No significant healing identified. ACT 112: Negative or not required by law. Electronically signed by: Ben Concepcion M.D. 05/06/2022 10:13 AM Hospital Course (1) Acute hip pain: Recent Distal R Femur Fx s/p ORIF on 04/15 @ [facility] Was at Rehab facility in [place], didn't feel that they were meeting needs and signed out AMA, attempted to go home but [facility] called 911 when he was unable to transfer into bed Fall precautions Orthopedics consulted Repeat imaging: hip w/ expected post-op changes for ORIF, R shoulder w/ progressive displacement R humeral head/neck (had not been compliant w/ sling -- encouraging compliance and has used while inpatient) Will need repeat imaging in 3 weeks (due May 27) and f/u Dr Dior for further treatment plan To remain NWB to RUE/RLL in meantime, hinge brace also provided to patient to help w/ healing Pain control, bowel regimen as needed -- Pain has been controlled on tylenol/lidocaine patches/topical voltaren as needed. Did send PO oxycodone if needed but hasn't really used much/any while inpatient but wanted this available. Issues w/ constipation so he was hoping to avoid use -- Continue miralax/senna/docusate. Can increase dosing of miralax and use suppository as needed. +BM x 2 while inpatient, last BM 05/10 DVT proph: eliquis 2.5mg BID -- possibly could cut shorter but given imaging w/o complete healing would continue in meantime. Can f/u orthopedics/PCP to see if able to stop or would want ambulation/mobility improved further. No evidence DVT on exam PT/OT consulted -- wanted [facility], previously denied. CM following/refs sent to SNF/[facility]. Patient DID have arranged caregivers during the day but may be unsafe at night w/o rehab stay for strengthening/conditioning and patient was agreeable and arrangements made for [facility] for rehab (2) Periprosthetic fracture around internal prosthetic right shoulder joint: Occurred as a result of fall in March, nonoperative management w/ sling however previously not wearing but has had increased use. Imaging w/ progression in displacement -- again, ortho consulted and rec to continue sling Will need f/u imaging 3 weeks, remains NWB at present (3) Anxiety: Continued xanax prn (takes sparingly), ambien for sleep at night Anxious to get home as he has bills to take care of and things to do and had been set back by current need for rehab/unsafe at home currently. He was working/hoping to get someone there 19/10 but would be home along overnight and was agreeable to SNF at [facility] after much discussion. Was additionally frustrated as he was hoping to go over the weekend but was unable occur. Reassurance provided that we only want what is best/most safe for patient. F/u PCP (4) Hypercholesterolemia: Continued Pravastatin Of note, hx HTN on losartan 25mg daily but hasn't gotten while inpatient and BPs stable and BUN/Cr improved since holding --> continue to hold this medication at d/c to prevent hypotension/falls/worsening issues w/ current fractures Monitor BP at skilled rehab, can continue if significant elevations F/u PCP (5) BPH w/o urinary obs/LUTS: Can continue Silodosin 8mg daily but not formulary and not brought in. Denied any issues w/ voiding at present (6) Constipation: continue bowel regimen +/- suppository at d/c Plan discharged to [facility] for long-term/rehab f/u orthopedics in 3 weeks Total Time Total Time Spent Total Time Spent (In Minutes): 60 Discharge Plan Discharge Items Patient Disposition: [facility] Reason For Visit: HIP PAIN Discharge Diagnosis: Hip Pain, Need for rehab Goals: You have been hospitalized for an acute medical problem. During your stay at [facility], we have made an effort to correct the problem that brought you to the hospital while keeping you as comfortable as possible. Medications were used to bring your condition under control and your discharge instructions will include directions for any medications you should take after leaving the hospital. Please make sure you see your Primary Care Provider as part of your follow up plan. Activity: As commented below Activity Comment: NON WEIGHT BEARING right upper or lower extremity Weightbearing: Right non-weightbearing Non-emergency contact: Primary Care Provider and Surgeon Call non-emergency contact if: you have any medication questions, your symptoms worsen and you have a fever Follow-up/Referrals: Esteban Jovel MD [Primary Care Provider] - Conner Dior MD [Surgeon] - (3 weeks) Diet: Regular Addtl Attending Provider Instructions: You have been hospitalized for placement and unsafe at home, requiring rehab. Dr Dior was consulted and we repeated x-rays which show worsening separation in your shoulder and you should continue to use the sling to prevent worsening. You will need to be NON WEIGHT BEARING to your right upper and lower extremity. You were provided a hinged brace. Instructions are 0 to 90 range of motion for physical therapy, but must be locked in extension for ambulation. You will need repeat x-rays in 3 weeks for evaluation of healing with Dr Dior. You can continue topical lidocaine patches, Voltaren gel, Tylenol for pain control. Oxycodone for breakthrough if needed but you have been stable without this. You will continue daily Miralax and senna/docusate. You can utilize Dulcolax suppository if needed if not moving your bowels every other day to prevent constipation. You have been set up for rehab at discharge to work on strength/conditioning. We have HELD losartan as your blood pressures have been well controlled off this medication. This can be resumed if your blood pressure starts creeping up but we would like to prevent low blood pressures. Please follow up with primary care in 7-10 days from discharge to monitor your status. Please return to the ER with any worsening pain, chest pain, shortness of breath, or for any other symptoms concerning for you. Take care! Pending Studies at Discharge: No Stand-Alone Forms: My [facility] Skilled Items Patient informed of condition?: Yes DNR: No Discharge Level of Care: Skilled Communicable Disease: No Discharge Prognosis: Stable Lines: None Urinary Catheter: No Medications and DC Order Prescriptions: New diclofenac sodium [Voltaren Arthritis Pain] 1 % Gel 2 g EXT QID Qty: 100 0RF bisacodyl 10 mg Suppository 10 mg RI DAILY PRN (Reason: constipation) Qty: 12 0RF Rx Instructions: if no BM Q2D oxycodone 5 mg Tablet 5 mg PO Q6H PRN (Reason: pain) Qty: 7 0RF polyethylene glycol 3350 [Miralax] 17 gram Powder In Packet 17 g PO BID Qty: 30 0RF sennosides-docusate sodium [Senokot-S] 8.6-50 mg Tablet 1 tab PO QAM Qty: 30 0RF lidocaine 5 % Adhesive Patch,Medicated 1 patch transdermal QPM Qty: 7 0RF Continued meclizine 25 mg tablet 25 mg PO TID PRN (Reason: dizziness) Qty: 30 2RF coenzyme Q10 50 mg capsule 50 mg PO DAILY omega 3,6,9 combination no.7 1 cap PO DAILY [id number] palm-min 17 1 tab PO DAILY melatonin 10 mg tablet 5 mg PO HS PRN (Reason: Sleep) Label Comments: 1.6 mg PO HS; super beta prostate 1 tab PO DAILY Rx Instructions: taking in AM strength unkown. Centrum Silver Men 300-600-300 mcg tablet 1 tab PO DAILY vardenafil 10 mg tablet 10 mg PO DAILY PRN (Reason: sexual activity) Qty: 30 1RF Rx Instructions: take 60 minutes prior to sexual activity acetaminophen [Tylenol] 325 mg Tablet 650 mg PO Q6H PRN (Reason: PAIN/FEVER) triamcinolone acetonide [Nasacort Allergy] 55 mcg Aerosol,[place] 1 spray INTRANASAL DAILY Rx Instructions: administer into each nostril lidocaine 5 % Adhesive Patch,Medicated 1 patch TOPICAL DAILY Rx Instructions: APPLY QAM, REMOVE HS. Eliquis 2.5 mg Tablet 2.5 mg PO BID alprazolam 0.25 mg tablet 0.25 mg PO BID PRN (Reason: Anxiety) Rx Instructions: 1/2 to 1 tablet twice daily as needed for anxiety acetaminophen [Tylenol Extra Strength] 500 mg Tablet 1,000 mg PO Q8H zolpidem [Ambien] 5 mg Tablet 5 mg PO HS PRN (Reason: Sleep) cholecalciferol (vitamin D3) [Vitamin D3] 50 mcg (2,000 unit) Capsule 50 mcg PO DAILY silodosin 8 mg Capsule 8 mg PO DAILY Rx Instructions: must administer with a meal/food pravastatin 20 mg tablet 20 mg PO HS Rx Instructions: TAKE 1 TABLET BY MOUTH DAILY vitamin A-vitamin C-vit E-min Tablet 1 tab PO DAILY esomeprazole magnesium 40 mg capsule,delayed release(DR/EC) 40 mg PO DAILY Rx Instructions: TAKE 1 CAPSULE BY MOUTH DAILY Discontinued losartan 25 mg tablet 25 mg PO DAILY Rx Instructions: TAKE 1 TABLET BY MOUTH DAILY Discharge Orders: Discharge Order (Routine); Ordered 05/11/22 Ordered By: Varsha Santamaria Admission Data Admit Date/Time: 05/02/22 14:37 Attending Provider: Hanh Gurrola Admit Provider: Julio Robertson Primary Care Provider: Esteban Jovel Other Providers: Alvin Nunez ; [facility] ; Roxana Hernandez at [place] ; [facility] ; [facility] Dior ; [facility] ; [facility], Other Interventions: Discharge Summary Assessment (RN) Last Done: 05/11/22 12:42 Supervising Physician Co-Signing Physician Notes PA Supervision Note: I did not personally see or examine the patient today, but I verified all ledezma points of ADDIS Santamaria's assessment and plan with the following exceptions/additions: Patient left the building before I could see him today. Coding Level of Care Code HOSP INP/OBS DISCH >30 MIN Diagnoses Acute hip pain M25.559 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
== END 2022-05-11 13:24 | DRG 556 ==
LOC: 3N 20:38 → ED 20:38 → SUATTDRO 21:33 → 3N 23:32 → SUATTDRO 05-02 14:37

== ENCOUNTER 2023-03-04 06:32 | Observation (INO) ==
--- NOTE | 2023-01-28 10:13 | PAT Medication Instructions ---
Medication Instructions Date of Service January 28, 2023 Home Medications Medication Instructions Recorded meclizine 25 mg tablet 25 mg PO TID PRN dizziness #30 tabs 05/24/20 lidocaine 5 % topical patch 1 patch transdermal QPM #7 ea 05/09/22 pravastatin 20 mg tablet See Rx Instructions .Route 08/25/22 .COMPLEX #90 tabs vardenafil 10 mg tablet 10 mg PO DAILY PRN sexual activity 10/21/22 #30 tabs omega 3,6,9 combination no.7 1 cap PO QAM meclizine 25 mg tablet 25 mg PO TID PRN [id number] 300 mcg-K 60 mcg-lycop 600 mcg-lutein 300 mcg tablet (Centrum Silver Men) 1 tab PO QAM super beta prostate 1 tab PO BID coenzyme Q10 50 mg capsule 50 mg PO HS triamcinolone acetonide 55 mcg nasal spray aerosol (Nasacort Allergy) 1 spray intranasal QAM lidocaine 5 % topical patch 1 patch transdermal QPM pravastatin 20 mg tablet See Rx Instructions .Route .COMPLEX vardenafil 10 mg tablet 10 mg PO DAILY PRN celecoxib 200 mg capsule (Celebrex) 200 mg PO QAM losartan 25 mg tablet 25 mg PO QAM tamsulosin 0.4 mg capsule 0.4 mg PO HS Continue as directed pravastatin 20 mg tablet See Rx Instructions .Route .COMPLEX ASK your surgeon for instructions lidocaine 5 % topical patch 1 patch transdermal QPM (do not apply on or near surgical site) celecoxib 200 mg capsule (Celebrex) 200 mg PO QAM STOP taking 2 weeks before surgery (or as soon as possible if surgery is within 2 weeks) omega 3,6,9 combination no.7 1 cap PO QAM super beta prostate 1 tab PO BID coenzyme Q10 50 mg capsule 50 mg PO HS DO NOT take the morning of surgery [id number] 300 mcg-K 60 mcg-lycop 600 mcg-lutein 300 mcg tablet (Centrum Silver Men) 1 tab PO QAM vardenafil 10 mg tablet 10 mg PO DAILY PRN losartan 25 mg tablet 25 mg PO QAM Take morning of surgery With a small sip of water, OTHERWISE NOTHING TO EAT OR DRINK AFTER MIDNIGHT: meclizine 25 mg tablet 25 mg PO TID PRN(if needed) triamcinolone acetonide 55 mcg nasal spray aerosol (Nasacort Allergy) 1 spray intranasal QAM Take evening before surgery meclizine 25 mg tablet 25 mg PO TID PRN(if needed) tamsulosin 0.4 mg capsule 0.4 mg PO HS Other Notes If you have any questions please call us at [phone] or [phone] or [phone] or [phone]
--- NOTE | 2023-02-02 11:36 | Anesthesiology Consultation ---
Date of Service February 02, 2023 Assessment & Plan (1) Encounter for pre-operative examination: - awaiting 02/08/23 [place] pre-operative appointment. - Patient states he prefers to remain overnight given his age and co- morbidities. This was also marked on form received from [facility]. OR notified, booking has been changed. Chart Review Chart Review: Pending: Refer to Additional Notes / Consult section and Patient seen in Pre Admission Testing Teaching & Discussion Pre-Anesthesia Teaching/Discussion Notes: Instructed NPO after midnight before surgery, except medications with 15 cc of water. Medication instructions provided according to the PAT guidelines. History Surgery Operation Date: 03/04/23 11:00 Proposed Procedures p Left Total Hip Arthroplasty Anterior Approach - Jono Mosquera MD Height/Weight Height: 5 ft 7 in Weight: 73.2 kg Allergies Allergy/AdvReac Type Severity Reaction Status Date / Time No Known Allergies Allergy Verified 01/21/23 14:19 Medications Home Medications Medication Instructions Recorded Confirmed Last Taken omega 3,6,9 combination no.7 1 cap PO QAM 10/28/18 01/21/23 Unknown meclizine 25 mg tablet 25 mg PO TID PRN dizziness #30 tabs 05/24/20 01/21/23 Unknown [id number]-sj-[id number] 300 mcg-K 60 1 tab PO QAM 09/05/20 01/21/23 05/01/22 mcg-lycop 600 mcg-lutein 300 mcg tablet (Centrum Silver Men) super beta prostate 1 tab PO BID 09/05/20 01/21/23 Unknown coenzyme Q10 50 mg capsule 50 mg PO HS 10/15/21 01/21/23 Unknown triamcinolone acetonide 55 mcg 1 spray intranasal QAM 05/01/22 01/21/23 05/01/22 nasal spray aerosol (Nasacort Allergy) lidocaine 5 % topical patch 1 patch transdermal QPM #7 ea 05/09/22 01/21/23 Unknown pravastatin 20 mg tablet See Rx Instructions .Route 08/25/22 01/21/23 Unknown .COMPLEX #90 tabs vardenafil 10 mg tablet 10 mg PO DAILY PRN sexual activity 10/21/22 01/21/23 Unknown #30 tabs celecoxib 200 mg capsule (Celebrex) 200 mg PO QAM 01/21/23 01/21/23 Unknown losartan 25 mg tablet 25 mg PO QAM 01/21/23 01/21/23 Unknown tamsulosin 0.4 mg capsule 0.4 mg PO HS 01/21/23 01/21/23 Unknown dietary supplement tab PO 02/03/23 Unknown Additional Notes: Patient reported at [facility] that he also takes Prevagen OTC supplement (apoaequorin). He was advised and it was written on provided medication instructions that he should stop taking medication 2 weeks before surgery. He verbalized understanding and agreement, denied questions, concerns or other medications/supplements. Past Medical History Medical History (Updated 02/02/23 @ 11:43 by Shoshana Perez PA-C) Chronic reflux esophagitis controlled, stable per pt BPH (benign prostatic hyperplasia) Premature ventricular contractions no cards, denies palpitations, dizziness, lightheadedness, presyncope Obstructive sleep apnea pt denies Hypertension controlled, stable per pt Hypercholesterolemia Degenerative joint disease involving multiple joints Anxiety stress related Allergic rhinitis Patient denies h/o stroke, seizures, heart attack, heart failure, blood clots/DVTs or blood transfusions. Exercise / Class Metabolic Activity II 4-5 Yardwork/Stairs/Walk up hill (denies chest discomfort or shortness of breath with 1 FOS) Past Family History Family History Son Primary biliary cirrhosis Other No family history of adverse response to anesthesia Past Surgical History Surgical History History of open reduction and internal fixation (ORIF) procedure rt leg *hardware intact History of total shoulder replacement rt/left History of cataract surgery rt/left History of colonoscopy History of total knee arthroplasty rt/left History of hip replacement, total right Past Anesthesia History No Hx of Anesthesia Complications and No Family Hx of Anesthesia Complications History of PONV No Hx of PONV and No Hx of Motion Sickness Social History Smoking Status: Never smoker Do You Dip or Chew Tobacco: No Hx Alcohol Use: No Alcohol type: wine substance use type: does not use Review of Systems Patient denies chest pain, shortness of breath, dyspnea on exertion, fever, chills, cough, wheezing, or palpitations. Physical Exam Vital Signs Vitals BP 102/70 P 72 TEMP 98.4 SP02 96% on RA RESP 18 Physical Patient resting comfortably in chair in no acute distress, alert and oriented, r esponding appropriately throughout visit Full cervical extension range of motion without pain TMD 3.5 finger breadths Mallampati Score 2 Dentition: intact, denies chipped or loose teeth, caps/crowns, implants or bridges Lungs: normal respiratory effort. Good air movement, clear throughout to auscultation, no adventitious breath sounds Cardiac: regular rate and rhythm, no murmurs noted Carotid arteries: negative bruit bilat Lab Results Anesthesia Preop Results Results Anesthesia Widget: WBC 5.77 K/ul (4.8-10.8) 02/02/23 Hgb 12.8 g/dl (14.0-18.0) L 02/02/23 Hct 37.9 % (42.0-52.0) L 02/02/23 Plt 188 K/uL (130-400) 02/02/23 Na 142 mmol/L (136-145) 02/02/23 K 4.5 mmol/L (3.5-5.1) 02/02/23 Cl 108 mmol/L (98-107) H 02/02/23 CO2 30 mmol/L (21-32) 02/02/23 BUN 35 mg/dl (6-23) H 02/02/23 Creat 1.01 mg/dl (0.6-1.4) 02/02/23 Glucose Level 106 mg/dl (70-99(Fasting)) H 02/02/23 PT 11.2 Seconds (9.0-12.0) 02/02/23 PTT 25.7 Seconds (21.0-31.0) 02/02/23 INR 1.0 (0.9-1.1) 02/02/23 Urine Color Yellow 02/02/23 Urine Appearance Clear (Clear) 02/02/23 Urine pH 6.0 (4.5-7.5) 02/02/23 Urine Specific [place] 1.022 (1.000-1.030) 02/02/23 Urine Protein Negative (Negative) 02/02/23 Urine Glucose (UA) Negative (Negative) 02/02/23 Urine Ketones Negative (Negative) 02/02/23 Urine Blood Negative (Negative) 02/02/23 Urine Nitrite Negative (Negative) 02/02/23 Urine Bilirubin Negative (Negative) 02/02/23 Urine Urobilinogen Negative (Negative) 02/02/23 Urine Leukocyte Esterase Negative (Negative) 02/02/23 Blood Type O Positive 02/02/23 Antibody Screen NEGATIVE 02/02/23 Testing Electrocardiogram Date: 02/02/23 Sinus rhythm with frequent premature atrial complexes, rate 65 bpm Left anterior fascicular block No significant change vs 04/14/22 EKG Chest X-Ray Date: 04/14/22 *1view* No acute chest disease. Right humeral fracture.
--- NOTE | 2023-03-02 12:32 | History & Physical Report ---
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 He now presents with increased groin and decreased range of motion on the left hip. He requires a cane for ambulation. He notices significant decrease in mobility and now has trouble trying his shoe and sock. He has tried both trochanteric and intra- articular injections which have failed. He has radiographic evidence of end- stage arthritis and is elected admitted for elective knee replacement surgery. Allergies Allergy/AdvReac Type Severity Reaction Status Date / Time No Known Allergies Allergy Verified 02/08/23 09:03 Home Medications Medication Instructions Recorded Confirmed Type omega 3,6,9 combination no.7 1 cap PO QAM 10/28/18 02/08/23 History meclizine 25 mg tablet 25 mg PO TID PRN dizziness #30 tabs 05/24/20 02/08/23 Rx tvdsgrqk-ln-smgve 300 mcg-K 60 1 tab PO QAM 09/05/20 02/08/23 History mcg-lycop 600 mcg-lutein 300 mcg tablet (Centrum Silver Men) super beta prostate 1 tab PO BID 09/05/20 02/08/23 History coenzyme Q10 50 mg capsule 50 mg PO HS 10/15/21 02/08/23 History triamcinolone acetonide 55 mcg 1 spray intranasal QAM 05/01/22 02/08/23 History nasal spray aerosol (Nasacort Allergy) lidocaine 5 % topical patch 1 patch transdermal QPM #7 ea 05/09/22 02/08/23 Rx pravastatin 20 mg tablet See Rx Instructions .Route 08/25/22 02/08/23 Rx .COMPLEX #90 tabs vardenafil 10 mg tablet 10 mg PO DAILY PRN sexual activity 10/21/22 02/08/23 Rx #30 tabs celecoxib 200 mg capsule (Celebrex) 200 mg PO QAM 01/21/23 02/08/23 History losartan 25 mg tablet 25 mg PO QAM 01/21/23 02/08/23 History tamsulosin 0.4 mg capsule 0.4 mg PO HS 01/21/23 02/08/23 History dietary supplement tab PO 02/03/23 02/08/23 History cyclobenzaprine 10 mg tablet 10 mg PO TID PRN muscle spasm #15 02/11/23 Rx tabs Past Med/Surg History Medical History Chronic reflux esophagitis controlled, stable per pt BPH (benign prostatic hyperplasia) Premature ventricular contractions no cards, denies palpitations, dizziness, lightheadedness, presyncope Obstructive sleep apnea pt denies Hypertension controlled, stable per pt Hypercholesterolemia Degenerative joint disease involving multiple joints Anxiety stress related Allergic rhinitis Surgical History History of open reduction and internal fixation (ORIF) procedure rt leg *hardware intact History of total shoulder replacement rt/left History of cataract surgery rt/left History of colonoscopy History of total knee arthroplasty rt/left History of hip replacement, total right Family History Son Primary biliary cirrhosis Other No family history of adverse response to anesthesia Social History Smoking Status: Never smoker Second Hand Exposure: Yes (as a child); Do You Dip or Chew Tobacco: No; Hx Alcohol Use: No Preferred Language: [place]er Communication Ability: Effective Pattern Technician Required: No Beliefs That Will Affect Care: Synagogue Synagogue Beliefs: Anabaptism marital status: / Current Living Situation: Alone current occupational status: retired Feels Safe at Home: Yes Safety Concerns: Feels Safe At This Time Assistive Devices: Glasses and Walker Assistive Devices Comment: reading glasses Review of Systems Review of Systems: Hip pain Physical Exam Physical Exam: General: Elderly man who appears his stated age. HEENT: NCAT, EOMI, PERRLA Neck: Negative JVD or bruits Heart: Regular rate and rhythm no murmurs or gallops appreciated Lungs: Breath sounds present equal in all bonilla Abdomen: Flat soft nontender bowel sounds positive Extremities: Left hip is 6 mm shorter than the right passive range of motion is 5 to 85 degrees flexion and -15 degrees internal rotation which reproduces groin pain. Neurological and vascular: Intact Results & Data Results & Data Vital Signs (Past 12 Hours) . Weight is 73 kg BMI 25 Blood pressure 110/66 Pulse 72
[~2023-03-04 06:32] MED LIST changes: +ACETAMINOPHEN 500 MG TAB PO SCH; -ACP20 PO; -COEN100C15 PO; +CeleBREX 200 MG CAP PO SCH; +FAMOTIDINE 20 MG TAB PO SCH; +GABAPENTIN 300 MG CAP PO SCH; +LR 500ML BOLUS, THEN 15ML/HR IV SCH; +LR 60ML/HR IV SCH; +MEPIVACAINE HCL 1.5% 30 ML VIAL ONE; +METOCLOPRAMIDE HCL 10 MG TABLET PO SCH; -MULT-190 PO; -MULT-506 PO; -PRAV20TA PO; +ROPIVACAINE 0.5% HCL/PF 150 MG, BUPIVACAINE 0.75% MPF 20 ML, EPINEPHrine 30MG/30ML (OR ... INSTIL SCH; -TRAM-10 PO; +TRANEXAMIC ACID 1,000 MG **IV Intra-op IV SCH; +TRANEXAMIC ACID 1,000 MG **IV Pre-op IV SCH; -TRIA3AER NAE; -XRL10 PO; -ZOLP5TAB PO; +ceFAZolin 2000MG 2,000 MG/15 ML SYR IV SCH; +dexAMETHasone 4 MG TAB PO SCH; -osteo biflex; -super beta prostate; +traMADol HCL 50 MG TABLET PO SCH
--- NOTE | 2023-03-04 07:24 | History & Physical Bridge Note ---
Date of Service March 04, 2023 History & Physical Bridge Note I have examined the patient, reviewed the History & Physical and in the interval since the performance of the History & Physical I have noted the following changes of clinical significance: no changes noted
[2023-03-04] MEDS ORDERED: ATROPINE SULFATE 0.1 MG/ML 10ML SYR IV PRN (07:33)
[2023-03-04] MEDS ORDERED: fentaNYL citrate PF 100 MCG/2 ML VIAL IV PRN (07:33)
[2023-03-04] MEDS ORDERED: ONDANSETRON INJ 2 MG/ML 2 ML VIAL IV PRN ×2 (07:33→11:36)
[2023-03-04] MEDS ORDERED: ePHEDrine sulfate 50 MG/ML AMP IV PRN (07:33)
[2023-03-04] MEDS ORDERED: MIDAZOLAM HCL 1 MG/ML 2ML VIAL ONE (07:37)
[2023-03-04] MEDS ORDERED: fentaNYL citrate PF 100 MCG/2 ML VIAL ONE (07:37)
[2023-03-04] MEDS ORDERED: ONDANSETRON INJ 2 MG/ML 2 ML VIAL ONE (07:48)
[2023-03-04] MEDS ORDERED: PROPOFOL IV EMULSION 10 MG/ML 20 ML VIAL IV ONE ×2 (07:48→09:26)
[2023-03-04] MEDS ORDERED: LIDOCAINE 2% 2 ML VIAL/AMP(20MG/ML) INFIL ONE (07:48)
[2023-03-04] MEDS ORDERED: BUPIVACAINE 0.5 % 5 MG/1 ML PF 10ML VIAL ONE (08:05)
[2023-03-04] MEDS ORDERED: ORTHO JOINT ANESTHETIC ONE (08:20)
[2023-03-04] MEDS ORDERED: ePHEDrine sulfate 50 MG/ML AMP ONE (08:54)
[2023-03-04] MEDS ORDERED: PHENYLEPHRINE HCL 10 MG/ML VIAL ONE (09:12)
--- NOTE | 2023-03-04 09:43 | Post Operative Brief Note ---
Immediate Post Op Note v1 Date of Surgery March 04, 2023 Pre & Post Diagnosis Operation Date: 03/04/23 08:15 Pre-Op Diagnosis: Left Hip Degenrative Joint Disease Post-Op Diagnosis: Left Hip Degenrative Joint Disease I identified the patient and participated in the time-out.: Yes Procedure Operation Date: 03/04/23 08:15 Actual Procedures p Left Total Hip Arthroplasty Anterior Approach--Cemented(Left) - Jono Mosquera MD Surgeon Jono Mosquera MD [employer] John Queen PAChaitanya Estimated Blood Loss 50 Findings Consistent with Post-Op Diagnosis
--- NOTE | 2023-03-04 11:04 | Fluoroscopy Report ---
INTRAOPERATIVE RADIOGRAPH CLINICAL HISTORY: Left hip arthroplasty. Fluoro time: 8 seconds Ka,r: 1.04 mGy FINDINGS: A single spot fluoroscopic image of the left hip is presented. A bipolar left hip arthropla sty is in near anatomic alignment. A single cortical lag screw transfixes the acetabular cup. There i s no evidence of acute fracture on this fluoroscopic view. IMPRESSION: Intraoperative image from a left hip arthroplasty procedure as above. Electronically signed by: Oziel Allen M.D. 03/04/2023 11:02 AM
[2023-03-04] MEDS ORDERED: MAGNESIUM HYDROXIDE SUSP 30 ML UDC PO PRN (11:36)
[2023-03-04] MEDS ORDERED: traMADol HCL 50 MG TABLET PO PRN (11:36)
[2023-03-04] MEDS ORDERED: NALOXONE HCL 0.4 MG/1 ML VIAL/CARP IV PRN (11:36)
[2023-03-04] MEDS ORDERED: CYCLOBENZAPRINE HCL 10 MG TAB PO PRN (11:36)
[2023-03-04] MEDS ORDERED: bisacodyL 10 MG SUPP PR PRN (11:36)
[2023-03-04] MEDS ORDERED: METOCLOPRAMIDE HCL INJ 5 MG/ML 2 ML VIAL IV PRN (11:36)
[2023-03-04] MEDS: SODIUM CHLORIDE 0.9% 1,000 ML IV SCH ×2 (11:51→21:44)
--- NOTE | 2023-03-04 12:49 | Anesthesiology Progress Note ---
Date of Service March 04, 2023 Anesthesia Post Procedure Vital Signs Vital Signs: Temp Pulse Pulse Resp BP Pulse Ox O2 Del Method 03/04/23 12:30 97.3 F L 52 L 18 105/64 96 Room Air 03/04/23 12:00 97.3 F L 58 L 18 108/60 95 Room Air 03/04/23 11:30 97.3 F L 61 18 100/62 99 Room Air 03/04/23 11:15 97.3 F L 64 18 105/74 97 Room Air 03/04/23 11:00 60 18 103/54 L 98 Room Air 03/04/23 10:55 60 14 100/57 L 98 Room Air 03/04/23 10:45 67 16 96/55 L 95 Room Air 03/04/23 10:35 60 16 103/59 L 98 Room Air 03/04/23 10:25 64 15 100/56 L 98 Room Air 03/04/23 10:15 67 13 103/60 100 Oxymask 03/04/23 10:06 97.3 F L 75 12 101/60 100 Oxymask 03/04/23 07:46 98.1 F 68 16 147/86 H 98 Room Air O2 Flow Rate 03/04/23 12:30 03/04/23 12:00 03/04/23 11:30 03/04/23 11:15 03/04/23 11:00 03/04/23 10:55 03/04/23 10:45 03/04/23 10:35 03/04/23 10:25 03/04/23 10:15 9 03/04/23 10:06 9 03/04/23 07:46 Transfer of Care Handoff Completed per policy Notes Mental Status: alert / awake / arousable and participated in evaluation Patient Amnestic to Procedure: Yes Nausea / Vomiting: adequately controlled Pain: adequately controlled Airway Patency, RR, SpO2: stable & adequate BP & HR: stable & adequate Hydration State: stable & adequate Neuraxial Anesthesia: was administered and sensory block is resolving Anesthetic Complications: no major complications apparent and Pt Satisfied with anesthetic care
--- NOTE | 2023-03-04 14:17 | Operative Report ---
Post Operative Report Pre & Post Diagnosis Operation Date: 03/04/23 08:15 Pre-Op Diagnosis: Left Hip Degenrative Joint Disease Post-Op Diagnosis: Left Hip Degenrative Joint Disease I identified the patient and participated in the time-out.: Yes Procedure Operation Date: 03/04/23 08:15 Actual Procedures p Left Total Hip Arthroplasty Anterior Approach--Cemented(Left) - Jono Mosquera MD Surgeon Jono Mosquera MD Academic Computing Director John MANCINI-C Estimated Blood Loss 50 Findings Consistent with Post-Op Diagnosis Severe degenerative changes with hypertrophic periarticular osteophytes Specimens Femoral head and bone and cartilage fragments Complications None Indications Patient is an 87-year-old male with a history of significant left lower extremity arthritis who has previously had right hip replacement and bilateral total knee replacements. He now presents with end-stage arthritis of the left hip. Components used: [employer] Polar cemented hip system: Acetabulum size 52 with 25 mm dome screw and Oreo Oxinium liner. Femur size 2 standard offset with +428 mm Oxinium inner dual mobility head. Note: John MANCINI was present and assisted throughout due to the complicated nature of this case. He help with preparation and set up an first officer and flight instructor throughout. He assisted with hemostasis and exposure throughout the procedure. He also closed the fascial subcutaneous and skin layers and applied the postop dressing. Following the satisfactory spinal anesthesia the patient was supine on the operating room table. The left leg was placed in the traction and device in the right leg in the well-leg chi. Positioning was confirmed with fluoroscopy. The leg was prepared with ChloraPrep and draped sterilely. A surgical timeout was performed. An anterior approach was performed in the interval between the sartorius and tensor muscles. The circumflex femoral vessels were identified and coagulated. An anterior capsulotomy was performed exposing the arthritic femoral neck and head. Fluoroscopy was used to confirm femoral neck resection level which was completed and the arthritic head was removed. The acetabular self-retaining retractor was placed. Acetabular preparation was completed with excision of some of the office osteophytes and labral tissue. Reaming was confirmed under direct vision and a 52 shell was impacted into a healthy bed in a position of 35 to 40 degrees of abduction 25 degrees of anteversion confirmed with fluoroscopy. A dome screw was placed followed by the Oreo liner. A large inferior osteophyte was removed. Local anesthetic was placed and the wound was irrigated. The femur was placed in a position of external rotation extension and adduction. Femoral canal was identified and was prepared up to a size 3. A trial reduction with a +4 neck length head and a standard offset neck was performed. This showed good fit and fill of the proximal canal very good orientation of the components and jew of leg length and offset at the level of the lesser trochanter. The hip was dislocated. A cement restriction plug was placed. The canal was curetted irrigated and dried. Third-generation cement technique using Simplex T cement was used to cement a size 2 standard offset stem. When the stem and hardened the final head and dual mobility shell were placed the wound was irrigated the hip was reduced and fluoroscopy showed similar findings. The wound was irrigated with 500 cc of experience irrigation. There was very little bleeding. The tensor fascia was closed with a running suture of 0 V-Loc. The subcutaneous tissues were closed with 0 strata fix. The superficial layer with 3 oh strata fix. Dermabond Prineo and negative pressure dressing were applied. The patient was returned to his bed in stable condition. Description of Procedure See above for the entire procedure under the indications category I attest to the content of the Intraoperative Record and any orders documented therein. Any exceptions are noted below.
[2023-03-04] MEDS: ceFAZolin 1000MG 1,000 MG/7.5 ML SYR IV SCH (16:50)
[2023-03-04] MEDS ORDERED: MELATONIN 3 MG TAB PO PRN (19:49)
[2023-03-04] MEDS: ASPIRIN 81 MG ECTAB PO SCH (20:41)
[2023-03-04] MEDS: DOCUSATE SODIUM 100 MG CAP PO SCH (20:41)
[2023-03-04] MEDS ORDERED: SENNA 8.6 MG TAB PO SCH (21:00)
[2023-03-04] MEDS ORDERED: TAMSULOSIN HCL 0.4 MG CAP PO SCH (21:00)
[2023-03-05] MEDS: ceFAZolin 1000MG 1,000 MG/7.5 ML SYR IV SCH (00:04)
[2023-03-05 07:05] LABS: Basophils # (auto) 0.02 K/uL (0.00-0.20); Basophils % (auto) 0.2 %; Eosinophils # (auto) 0.01 K/uL (0.00-0.50); Eosinophils % (auto) 0.1 %; Hematocrit (blood only) 27.8 % (42.0-52.0); Hemoglobin 9.6 g/dl (14.0-18.0); Immature Granulocytes # (auto) 0.05 K/uL (0.01-0.20); Immature Granulocytes % (auto) 0.4 %; Lymphocytes # (auto) 1.09 K/uL (1.20-3.40); Lymphocytes % (auto) 8.7 %; Mean Corpuscular Hemoglobin 32.7 pg (25.0-34.0); Mean Corpuscular Hgb Conc 34.5 g/dL (32.0-36.0); Mean Corpuscular Volume 94.6 fL (80.0-100.0); Mean Platelet Volume 9.7 fL (9.4-12.4); Monocytes # (auto) 0.89 K/uL (0.11-0.59); Monocytes % (auto) 7.1 %; Neutrophils % (auto) 83.5 %; Platelet Count 171 K/uL (130-400); RDW Standard Deviation 44.9 fL (36.4-46.3); Red Blood Count 2.94 M/uL (4.70-6.10); White Blood Count 12.46 K/ul (4.8-10.8)
[2023-03-05 07:29] LABS: Calcium 8.7 mg/dl (8.6-10.3); Est GFR (African American) 88.1 ml/min; Potassium 4.2 mmol/L (3.5-5.1)
[2023-03-05] MEDS: DOCUSATE SODIUM 100 MG CAP PO SCH (07:42)
[2023-03-05] MEDS: ASPIRIN 81 MG ECTAB PO SCH (07:43)
--- NOTE | 2023-03-05 07:59 | Orthopedic Progress Note ---
Date of Service March 05, 2023 Assessment & Plan (1) Degenerative joint disease of left hip: Plan: home w home pt Plan Plan: Left total hip replacement cemented most likely overnight stay and then home with home therapy Admission and Anticipated Discharge Date Admission Date: March 04, 2023 Subjective POD 1 L EUGENIO NO COMPLAINTS Physical Exam Physical Exam: A AND O X3 hip located dressing cdi nv intact leg lengths equal Results & Data Vital Signs (Past 12 Hours) Vital Signs Temp Pulse Resp BP Pulse Ox O2 Del Method 03/05/23 06:58 37 C 73 16 110/64 98 Room Air 03/05/23 04:06 36.8 C 74 18 138/74 96 Room Air 03/04/23 23:22 36.5 C 65 18 104/66 97 Room Air
[2023-03-05] MEDS ORDERED: LOSARTAN POTASSIUM 25 MG TAB PO SCH (09:00)
[2023-03-05] MEDS ORDERED: CeleBREX 200 MG CAP PO SCH (09:00)
[2023-03-05] MEDS ORDERED: MULTIVITAMIN TAB PO SCH (09:00)
--- NOTE | 2023-03-09 13:57 | Discharge Summary ---
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 He now presents with increased groin and decreased range of motion on the left hip. He requires a cane for ambulation. He notices significant decrease in mobility and now has trouble trying his shoe and sock. He has tried both trochanteric and intra- articular injections which have failed. He has radiographic evidence of end- stage arthritis and is elected admitted for elective knee replacement surgery. Admission Exam Per Admitting Provider Physical Exam: General: Elderly man who appears his stated age. HEENT: NCAT, EOMI, PERRLA Neck: Negative JVD or bruits Heart: Regular rate and rhythm no murmurs or gallops appreciated Lungs: Breath sounds present equal in all bonilla Abdomen: Flat soft nontender bowel sounds positive Extremities: Left hip is 6 mm shorter than the right passive range of motion is 5 to 85 degrees flexion and -15 degrees internal rotation which reproduces groin pain. Neurological and vascular: Intact Principal Diagnosis left hip osteoarthritis Discharge Data Allergies Allergy/AdvReac Type Severity Reaction Status Date / Time No Known Allergies Allergy Verified 03/04/23 07:41 Procedures Performed Operation Date: 03/04/23 08:15 Actual Procedures p Left Total Hip Arthroplasty Anterior Approach--Cemented(Left) - Jono Mosquera MD Ordered Studies 03/04/23 08:15 FL hip LT 1V Routine Hospital Course (1) Degenerative joint disease of left hip: Patient: TIFFANY SLAUGHTER Admit Date: 03/04/23 MR#: [id number] Att Phy: Jono Mosquera MD Acct ID: [id number] [facility] Phy: Esteban Jovel MD Date: 1935 [facility] Phy: Age: 87 Location: 3W Sex: M Room/Bed: [facility] cc: ~ *NOTICE TO RECEIVING DEMOCRAT/AGENCY This information is strictly Confidential and protected under [place] law. [place] law prohibits you from making any further disclosure of this information unless further disclosure is expressly permitted by the written consent of the person to whom it pertains or is authorized by law. A general authorization for the release of medical or other information is not sufficient for this purpose. Hospital accepts no responsibility if the information is made available to any other person, INCLUDING THE PATIENT. Date of Service March 05, 2023 Assessment & Plan (1) Degenerative joint disease of left hip: Plan: home w home pt Plan Plan: Left total hip replacement cemented most likely overnight stay and then home with home therapy Admission and Anticipated Discharge Date Admission Date: March 04, 2023 Subjective POD 1 L EUGENIO NO COMPLAINTS Physical Exam Physical Exam: A AND O X3hip located dressing cdi nv intact leg lengths equal Results & Data Vital Signs (Past 12 Hours) Vital Signs Temp Pulse Resp BP Pulse Ox O2 Del Method 03/05/23 06:58 37 C 73 16 110/64 98 Room Air 03/05/23 04:06 36.8 C 74 18 138/74 96 Room Air 03/04/23 23:22 36.5 C 65 18 104/66 97 Room Air Signed By: <Electronically signed by Jono Mosquera MD> 03/05/23 0801 Created: 03/05/23 0757 Plan Plan: Left total hip replacement cemented most likely overnight stay and then home with home therapy Total Time Total Time Spent Total Time Spent (In Minutes): 5 Discharge Plan Discharge Items Patient Disposition: Home - Home Health Services Reason For Visit: Left Hip Degenrative Joint Disease Discharge Diagnosis: DJD left Hip Activity: Per Instructions section Weightbearing: Full weightbearing Non-emergency contact: Surgeon Call non-emergency contact if: you have any medication questions, your pain is not controlled, your temperature is above 101.5 and your wound has increased redness Follow-up/Referrals: [facility] [Outside] (as per surgeon's office ) Esteban Jovel MD [Primary Care Provider] - Jono Mosquera MD [Surgeon] - (Follow-up with Dr. Mosquera in 3 weeks for your first postoperative appointment.) Diet: Regular Addtl Attending Provider Instructions: DR. WILLSON POST-OP INSTRUCTIONS FOR TOTAL HIP ARTHROPLASTY PLEASE REVIEW PRIOR TO SURGERY Day of Surgery You will be admitted and meet the nursing and anesthesia team. Dr. Mosquera will see you and sign your operative side. Anesthesia will place your spinal anesthetic in the pre-op area Your surgery will be performed and last approximately 1 2 hours. Upon waking, you will notice a dressing and ice pack on your hip. You will remain in the recovery room for 1 2 hours, then be transferred to your room in the ambulatory surgical area if you are to go home the same day as your surgery or transferred to the orthopedic floor if you will be staying overnight. Most of Dr. Willson total hip patients go home the same day as surgery. This depends on how well you feel. Patients generally seem to feel better in their own home environment, and the risk of exposure to bad bugs is much lower. (Your post-operative medications will be sent to your pharmacy approximately 1-2 days prior to your procedure) Day 1 post-op (if you have an overnight stay in the hospital) You will have bloodwork drawn in the morning Physical therapy will evaluate you in the morning. You will start getting out of bed and ambulating with a walker. They will instruct you on hip motion exercises. Use your cold packs as instructed. This will decrease swelling and minimize pain. patient services manager will discuss your discharge plan. Discharge will generally be around 11am Day 1 post-op (all patients) You will be taking Aspirin 81mg twice for 4 weeks to decrease the risk of a blood clot. You will most likely have a drain and a JOSIE (superficial wound VAC) dressing post-operatively. This will keep your incision dry as well as aid in early healing. The batteries will wear out and the VAC will lose suction around day 6 - 7 post-op. At that time, you may turn off the device and disconnect from the dressing. You must keep the dressing on until your first post- operative visit with Dr. Mosquera. If the dressing appears to be saturated, please call our office. Day 2 14 post-op You will have a home nurse visit to assess your status and remove your drain on post-op day 2. You are permitted to shower immediately with the VAC. Do not soak the dressing let the shower flow on your opposite side, and pat dry the plastic. Once the dressing has been removed, you may shower normally with the incision exposed. Do not rub the area simply let soapy water run over the incision and lightly pat dry. Therapy will begin on post-op day 3. Your therapy prescription will be sent to your home therapy company/therapist You should continue doing your home exercises Week 2 post-op and forward You will have your first post-op appointment 2 weeks after surgery which should have been scheduled for you by our office. This appointment will be to check your incision, progression of therapy and pain control. Xrays will be taken to evaluate the prosthesis. You will continue to use a cane or a walker until you feel safe enough to stop using it. You will have a 6-week post-op appointment which should have been scheduled for you by our office. Xrays will be taken to evaluate the prosthesis. You will continue to advance range of motion. By 3 to 4 months after surgery, you should have almost full range of motion and may resume most activities. You may have some pain around the hip with certain activities this is completely normal. You will be scheduled for a 1 year post-op appointment to assess your outcome (sooner if Dr. Mosquera feels necessary). Pain: The immediate post-op period after hip replacement surgery can be painful. However, the degree and frequency of the pain is generally much less than knee replacement surgery. You should take your pain medicine as you need it, especially prior to physical therapy and bedtime. Your pain will decrease and you may transition to a milder pain medicine (with less side effects, such as Tylenol) as soon as possible. It is common to have pain at night that interferes with sleep this can last for several months. Pain medicines can cause nausea and constipation do not take more than you need. You may be prescribed one or more of the following medications: 1. Celebrex this controls inflammation and makes pain medications mor effective it will be taken once or twice a day 2. Tylenol a pain medicine that can help to decrease your pain you should take 1000mg three times a day 3. Tramadol a pain medicine that can be taken every 4-6 hours (instead of Oxycodone) as needed to control your pain 4. Oxycodone a VERY strong pain medicine that can be taken every 4-6 hours (instead of Tramadol) as needed to control your pain. This medication has the most side effects and is usually not necessary for hip replacements. 5. Aspirin 81mg blood thinning medication to help minimize the risk of development of blood clots unfortunate side effects of pain medicine include nausea and constipation if you experience these issues or have any questions about your post-op medications, call [facility] at for assistance/advice on how to manage these issues Hip replacement surgery does not require a lot of aggressive physical therapy. Learning to walk safely and obeying hip precautions are most important. While in the hospital, you will be shown a series of home exercises you should perform these exercises 3 4 times daily in addition to physical therapy. After the completion of home therapy (approx.. 2 weeks), most therapy exercises can be done on your own. You should walk several times a day. Try not to be standing for more than an hour at a time during the first 4 weeks post-op as you may experience more swelling. If you develop swelling, you need to elevate your legs/feet at or above the level of your heart. You may progress from a walker to a cane to walking independently as you feel comfortable. Unless it is an emergency, YOUR ARE NOT PERMITTED TO HAVE ANY DENTAL CLEANING/WORK UNTIL 3 MONTHS AFTER SURGERY. You will be required to take an antibiotic prior to any dental cleaning or dental work in order to prevent your joint prothesis from getting infected. This medication is a one time per visit dose to be taken one hour prior to appointment. You may call our office for this prescription or your dentist may be willing to prescribe the medication. Remember to contact [facility] at if you develop any signs of infection which include increased swelling, pain, redness, drainage from incision, warmth, fever, chills or severe pain unrelieved by pain medication. If you develop any chest pain or shortness of breath, you should proceed immediately to the nearest Emergency Room. It is normal to run a low-grade fever after surgery. If your fever is consistent at 101.0 or higher, you will need to contact the office. Stand-Alone Forms: [facility], Sm[facility] Cessation Medications and DC Order Prescriptions: New aspirin 81 mg Tablet,Delayed Release (Dr/Ec) 81 mg PO BID 30 Days Qty: 60 0RF Continued pravastatin 20 mg tablet See Rx Instructions .ROUTE .COMPLEX Qty: 90 3RF Dose Instruction: TAKE 1 TABLET BY MOUTH DAILY Patient Comments: takes hs Rx Instructions: TAKE 1 TABLET BY MOUTH DAILY vardenafil 10 mg tablet 10 mg PO DAILY PRN (Reason: sexual activity) Qty: 30 1RF Rx Instructions: take 60 minutes prior to sexual activity meclizine 25 mg tablet 25 mg PO TID PRN (Reason: dizziness) Qty: 30 2RF coenzyme Q10 50 mg capsule 50 mg PO HS omega 3,6,9 combination no.7 1 cap PO QAM super beta prostate 1 tab PO BID Rx Instructions: strength unkown. Centrum Silver Men 300-600-300 mcg tablet 1 tab PO QAM cyclobenzaprine 10 mg tablet 10 mg PO TID PRN (Reason: muscle spasm) Qty: 15 0RF triamcinolone acetonide [Nasacort Allergy] 55 mcg Aerosol,[place] 1 spray INTRANASAL QAM Rx Instructions: administer into each nostril lidocaine 5 % Adhesive Patch,Medicated 1 patch transdermal QPM Qty: 7 0RF Patient Comments: hip pain celecoxib [Celebrex] 200 mg Capsule 200 mg PO QAM losartan 25 mg Tablet 25 mg PO QAM tamsulosin [Flomax] 0.4 mg capsule 0.4 mg PO HS dietary supplement Tablet 1 tab PO DAILY Rx Instructions: Prevagen OTC: apoaequorin. Admission Data Admit Date/Time: 03/04/23 09:48 Attending Provider: Jono Mosquera Admit Provider: Jono Mosquera Primary Care Provider: Esteban Jovel Other Providers: [facility] Other Interventions: Discharge Summary Assessment (RN) Last Done: 03/05/23 10:19
== END 2023-03-05 12:06 | disposition home health service (06) ==
LOC: ASU 06:32 → 3W 06:32